=== PATIENT | female | born 1990 | race Caucasian/White ===

== ENCOUNTER 2016-12-13 15:51 | Emergency (ER) | payer OTHER, BC ==
[~2016-12-13] VITALS: Ht 157.5 cm; Wt 72.6 kg
[~2016-12-13 15:51] MED LIST: AMOX-358 PO; CYCL10TA9 PO; DCS100C PO; HYDR-3720 PO; Ibuprofen PO; NAPR500T PO; ONDA-42 PO; PNV1CAPS42 PO; PRD20T PO
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
[2016-12-13] MEDS ORDERED: CYCLOBENZAPRINE 10 MG (FLEXERIL) TAB PO STA (17:32)
[2016-12-13] MEDS ORDERED: ACETAMINOPHEN 325 MG TABLET/CAPLET (TYLENOL) PO STA (17:32)
[2016-12-13] MEDS ORDERED: CYCL10TA9 PO (17:37)
[2016-12-13 18:34] VITALS: BP 107/57
== END 2016-12-13 18:34 | disposition home or self-care (01) ==
LOC: ER 15:51
DX: S13.9XXA Sprain of joints and ligaments of unspecified parts of neck, initial encounter (principal); Z87.59 Personal history of other complications of pregnancy, childbirth and the puerperium; V43.52XA Car driver injured in collision with other type car in traffic accident, initial encounter
CPT/HCPCS: 70450; 72125; 73110; 99283

== ENCOUNTER 2018-03-02 15:45 | Emergency (ER) | payer BC, OTHER ==
[~2018-03-02] VITALS: Ht 154.9 cm; Wt 70.3 kg
[~2018-03-02 15:45] MED LIST changes: +NAPR-1071 PO; -NAPR500T PO
--- OUTSIDE RECORDS SUMMARY | 2018-03-02 15:51 | XMS REPORT ---
Author Author ARTHUR GRULLON Organization [employer] Address Unknown Phone Unavailable Care Team Providers Care Overcoiler Name Role Phone ARTHUR GRULLON CP Unavailable Allergies No Known Allergies Problems Problem Type Condition Code Onset Dates Condition Status Problem General counseling for prescription of oral contraceptives V25.01 Active Problem Unspecified vaginitis and vulvovaginitis 616.10 Active Problem Other headache syndrome G44.89 Active Problem Candidiasis of vulva and vagina 112.1 Active Problem Screening examination for pulmonary tuberculosis V74.1 Active Problem Dysuria 788.1 Active Medications No Known Medications Results No Known Results Summary Purpose [employer] Submission
--- OUTSIDE RECORDS SUMMARY | 2018-03-02 15:51 | XMS REPORT ---
Author Author ARTHUR GRULLON [facility] [employer] Address Unknown Phone Unavailable Care Team Providers Care Mountain Services Manager Name Role Phone ARTHUR GRULLON CP Unavailable Allergies, Adverse Reactions, Alerts Substance Reaction Event Type N.K.D.A. Info Not Available Non Drug Allergy Problems Problem Type Condition Code Onset Dates Condition Status Assessment Other headache syndrome G44.89 Active Problem General counseling for prescription of oral contraceptives V25.01 Active Problem Unspecified vaginitis and vulvovaginitis 616.10 Active Problem Other headache syndrome G44.89 Active Problem Candidiasis of vulva and vagina 112.1 Active Assessment Fatigue, unspecified type R53.83 Active Problem Screening examination for pulmonary tuberculosis V74.1 Active Problem Dysuria 788.1 Active Medications Medication Code System Code Instructions Start Date End Date Status Dosage Depo-Provera [facility] [address]-46 150 MG/ML Intramuscular 1 ml Procedures Procedure Coding System Code Date COMPREHEN METABOLIC PANEL CPT-4 75604 Feb 06, 2016 ASSAY THYROID STIM HORMONE CPT-4 56672 Feb 06, 2016 COMPLETE CBC W/AUTO DIFF WBC CPT-4 38973 Feb 06, 2016 VENIPUNCT, ROUTINE* CPT-4 74882 Feb 06, 2016 C-REACTIVE PROTEIN CPT-4 64623 Feb 06, 2016 Office Visit, Est Pt., Level 3 CPT-4 65702 Feb 06, 2016 Vital Signs Date/Time: Feb 06, 2016 Cardiac Monitoring Heart Rate 72 bpm Weight 156.6 lbs Height 60 in BMI 30.58 Index Blood Pressure Diastolic 72 mmHg Blood Pressure Systolic 118 mmHg Results Name Result Date Reference Range Unit Abnormality Flag TSH ----TSH 1.760 21247386 0.450-4.500 uIU/mL CBC ----Basos 0 93125293 % ----MCV 87 36403080 79-97 fL ----Hematocrit 46.2 53146750 34.0-46.6 % ----Eos 1 45228659 % ----MCHC 32.7 53931335 31.5-35.7 g/dL ----Monocytes 6 92842709 % ----MCH 28.5 30494677 26.6-33.0 pg ----Lymphs 20 95600701 % ----Eos (Absolute) 0.1 02374584 0.0-0.4 x10E3/uL ----WBC 7.6 72374140 3.4-10.8 x10E3/uL ----Monocytes(Absolute) 0.5 52668538 0.1-0.9 x10E3/uL ----Lymphs (Absolute) 1.5 46748683 0.7-3.1 x10E3/uL ----Hemoglobin 15.1 07283426 11.1-15.9 g/dL ----Neutrophils (Absolute) 5.5 09436168 1.4-7.0 x10E3/uL ----RBC 5.30 48376870 3.77-5.28 x10E6/uL H ----Immature Grans (Abs) 0.0 60487518 0.0-0.1 x10E3/uL ----Immature Granulocytes 0 04189370 % ----Neutrophils 73 68842031 % ----Baso (Absolute) 0.0 03203436 0.0-0.2 x10E3/uL ----RDW 14.4 04486421 12.3-15.4 % ----Platelets 353 72175965 150-379 x10E3/uL ROUTINE VENIPUNCTURE CT Scan : Face CT Scan : Head/Brain w/o & w/ Contrast CRP ----C-Reactive Protein, Quant 8.8 [id number] 0.0-4.9 mg/L H CMP ----Creatinine, Serum 0.80 26279430 0.57-1.00 mg/dL ----BUN 16 24597387 6-20 mg/dL ----eGFR If Africn Am 120 34201843 >59 mL/min/1.73 ----eGFR If NonAfricn Am 104 63470119 >59 mL/min/1.73 ----Sodium, Serum 141 43887231 136-144 mmol/L ----BUN/Creatinine Ratio 20 08327841 8-20 ----Chloride, Serum 100 94845527 97-106 mmol/L ----Potassium, Serum 4.5 94229507 3.5-5.2 mmol/L ----Carbon Dioxide, Total 24 75439415 18-29 mmol/L ----Protein, Total, Serum 7.6 74748432 6.0-8.5 g/dL ----Calcium, Serum 9.9 79246297 8.7-10.2 mg/dL ----Globulin, Total 3.3 43483059 1.5-4.5 g/dL ----Albumin, Serum 4.3 95145926 3.5-5.5 g/dL ----Bilirubin, Total 0.6 13130762 0.0-1.2 mg/dL ----Glucose, Serum 65 20160206 65-99 mg/dL ----A/G Ratio 1.3 20160206 1.1-2.5 ----ALT (SGPT) 19 20160206 0-32 IU/L ----Alkaline Phosphatase, S 105 96171845 39-117 IU/L ----AST (SGOT) 19 20160206 0-40 IU/L Summary Purpose [employer]ClinicalWorks Submission
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
--- OUTSIDE RECORDS SUMMARY | 2018-03-02 15:51 | XMS REPORT ---
Author Author EMY CONNELL Organization [facility] Address [address] [place] [address] Care Team Providers Care Search Marketing Coordinator Name Role Phone EMY CONNELL Unavailable PROBLEMS No Known Problems ALLERGIES No Information ENCOUNTERS Encounter Location Date Diagnosis [facility] [id number] [place] [address] Dec, Right wrist pain M25.531 [facility] [id number] [place] [address]- [address]15 Nov, Right wrist pain M25.531 [facility] [id number] [place] [address]- [address]99 Jan, [facility] [id number] [place] [address] 52321- [address] Jan, Fatigue, unspecified type R53.83 and Other headache syndrome G44.89 [facility] [id number] [place] [address] Jul, Increased urinary frequency R35.0 ; Acute urinary tract infection N39.0 and Vaginal candidiasis B37.3 [facility] [id number] [place] [address] 09022- 6355 Jan, Yeast infection of the vagina B37.3 [facility] [id number] [place] [address] 31876- 2140 Jul, [facility] [id number] [place] [address] 07759- 7051 Jul, [facility] [id number] [place] [address] 23888- 4898 Mar, [facility] [address] [place] [address]- [address]89 Mar, [facility] [address] [id number] [place] [address] 17[address] Apr, [facility] [place] [facility] [address] [id number] [place] [address]- [address] Apr, [facility] [address] [id number] [place] [address]- 2718 Mar, [facility] [place] [facility] [address] [id number] [place] [address]- 0413 Mar, [facility] [address] [id number] [place] [address]- [address]6 Mar, [facility] [address] [id number] [place] [address]- 2917 Mar, [facility] [address] [id number] [place] [address]- 2607 Mar, [facility] [address] [id number] [place] [address]- 3219 Oct, [facility] [place] [facility] [address] [id number] [place] [address]- 3881 Oct, [facility] [address] [id number] [place] [address]- 0[address] 15 Oct, 2012 [facility] [place] [facility] [address] [id number] [place] [address]- 9722 14 Oct, 2012 [facility] [place] [facility] [address] [id number] [place] [address]- 9604 Oct, [facility] [place] [facility] [address] [id number] [place] [address]- 8937 Jun, [facility] [place] [facility] [address] [id number] [place] [address]- 8200 May, [facility] [place] [facility] [address] [id number] [place] [address]- 6557 Feb, [facility] [address] [facility] [id number] [place] [address]- 6[address] Feb, [facility] [address] [facility] [id number] [place] [address] 1754 Jan, IMMUNIZATIONS No Known Immunizations SOCIAL HISTORY Never Assessed REASON FOR VISIT Referral PLAN OF CARE VITAL SIGNS MEDICATIONS Unknown Medications RESULTS No Results PROCEDURES No Known procedures INSTRUCTIONS MEDICATIONS ADMINISTERED No Known Medications MEDICAL (GENERAL) HISTORY Type Description Date Surgical History Hospitalization History surgery
--- OUTSIDE RECORDS SUMMARY | 2018-03-02 15:51 | XMS REPORT ---
Author BRIAN Serrano [facility] eClinicalWorks Address Unknown Phone Unavailable Care Team Providers Care Sign Writer Letterer Or Painter Name Role Phone BRIAN MARK CP Unavailable Allergies, Adverse Reactions, Alerts Substance Reaction Event Type N.K.D.A. Info Not Available Non Drug Allergy Problems Problem Type Condition Code Onset Dates Condition Status Problem Unspecified vaginitis and vulvovaginitis 616.10 Active Problem Screening examination for pulmonary tuberculosis V74.1 Active Problem General counseling for prescription of oral contraceptives V25.01 Active Assessment Yeast infection of the vagina B37.3 Active Problem Dysuria 788.1 Active Problem Candidiasis of vulva and vagina 112.1 Active Medications Medication Code System Code Instructions Start Date End Date Status Dosage Depo-Provera [facility] [address]-53 150 MG/ML Intramuscular [address] [facility] [address]-06 100 MG Orally Once a day Jan 14, 2015 Jan 21, 2015 1 tablet Procedures Procedure Coding System Code Date Office Visit, Est Pt., Level 3 CPT-4 77015 Jan 14, 2015 Vital Signs Date/Time: Jan 14, 2015 Temperature 98.8 F Weight 150.3 lbs Height 60 in BMI 29.35 Index Blood Pressure Diastolic 80 mmHg Blood Pressure Systolic 116 mmHg Cardiac Monitoring Heart Rate 72 bpm Results No Known Results Summary Purpose eClinicalWorks Submission
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
[2018-03-02] MEDS ORDERED: ACETAMINOPHEN 325 MG TABLET PO STA (16:09)
--- NOTE | 2018-03-02 16:09 | ED Lower Extremity ---
General Chief Complaint: Lower Extremity Stated Complaint: INJURED RT FOOT Nursing Triage Note: PATIENT TO ER VIA WHEELCHAIR WITH FAMILY MEMBERS COMPLAINING OF RIGHT ANKLE AND FOOT PAIN. PATIENT STATES SHE WAS HOLDING A CLOTHES BASKET, TRIPPED AND FELL OVER THE CLOTHES BASKET. PATIENT IS UNABLE TO BEAR WEIGHT ON THE RIGHT LEG DUE TO THE PAIN. Nursing Sepsis Screen: No Definite Risk History of Present Illness Date Seen by Provider: Mar 02, 2018 Time Seen by Provider: 15:55 Initial Comments 27-year-old female presents for left foot and ankle pain. She states she was carrying a closed basket when she tripped and fell injuring her right lower extremity. She denies any other injuries at the time of the fall. She's had no previous surgeries on her right lower extremity. Onset: just prior to arrival Pain/Injury Location: right foot, right ankle Method of Injury: fell Modifying Factors: Improves With Rest Allergies and Home Medications Allergies Coded Allergies: No Known Drug Allergies (Unverified , 06/20/13) Home Medications Amoxicillin/Potassium Clav 1 Each Tablet, 1 EACH PO BID Prescribed by: LINA BATISTA on 12/26/15 0910 Cyclobenzaprine HCl 10 Mg Tablet, 10 MG PO Q8H PRN for SPASMS Prescribed by: TOLU LIU on 10/21/15 1302 Cyclobenzaprine HCl 10 Mg Tablet, 10 MG PO Q8H PRN for SPASMS Prescribed by: IRASEMA LESTER on 12/13/16 1737 Naproxen 500 Mg Tablet, 500 MG PO BID Prescribed by: TOLU LIU on 10/21/15 1302 Prednisone 20 Mg Tab, 40 MG PO DAILY Prescribed by: TOLU LIU on 10/21/15 1302 Patient Home Medication List Home Medication List Reviewed: Yes Review of Systems Constitutional: no symptoms reported, see HPI Musculoskeletal: see HPI, joint pain (right ankle and foot) All Other Systems Reviewed Negative Unless Noted: Yes Past Vrocmra-Uuljqm-Kwnkcc Hx Past Med/Social Hx: Reviewed Nursing Past Med/Soc Hx Patient Social History Alcohol Use: Denies Use Recreational Drug Use: No Smoking Status: Never a Smoker 2nd Hand Smoke Exposure: No Recent Foreign Travel: No Contact w/Someone Who Travel: No Recent Infectious Disease Expo: No Recent Hopitalizations: No Immunizations Up To Date Tetanus Booster (TDap): Unknown PED Vaccines UTD: Yes Past Medical History Surgeries: Yes ( X 1, LEFT WRIST GANGLION CYST) Section, Orthopedic Respiratory: No Cardiac: No Neurological: No Reproductive Disorders: No Female Reproductive Disorders: Denies Genitourinary: No Gastrointestinal: No Musculoskeletal: No Endocrine: No HEENT: No Cancer: No Psychosocial: No Integumentary: No Blood Disorders: No Adverse Reaction/Blood Tranf: No Family Medical History Diabetes mellitus Hypertension Physical Exam Vital Signs Vital Signs - First Documented 03/02/18 15:47 Temp 99.4 Pulse 106 Resp 18 B/P (MAP) 114/80 (91) Pulse Ox 97 O2 Delivery Room Air Capillary Refill : Less Than 3 Seconds Height, Weight, BMI Height: 5'1.00" Weight: 155lbs. oz. 70.913249aa; 30.23 BMI Method:Stated General Appearance: WD/WN, no apparent distress Cardiovascular: normal peripheral pulses, regular rate, rhythm, other (pedal pulses 2+ and symmetric, brisk capillary refill.) Respiratory: chest non-tender, lungs clear, normal breath sounds Ankles: right ankle limited range of motion (secondary to pain), right ankle pain, right ankle soft tissue tenderness, right ankle swelling Feet: right foot limited range of motion, right foot pain, right foot soft tissue tenderness Neurologic/Tendon: normal sensation, normal motor functions, normal tendon functions Neurologic/Psychiatric: no motor/sensory deficits, alert, normal mood/affect, oriented x 3 Skin: normal color, warm/dry Progress/Results/Core Measures Results/Orders My Orders Orders - IRASEMA LESTER Foot, Right, 3 View (03/02/18 15:55) Ankle, Right, 3 Views (03/02/18 15:55) Acetaminophen Tablet/Caplet (Tylenol T (03/02/18 16:09) Vital Signs/I&O 03/02/18 03/02/18 15:47 16:55 Temp 99.4 99.4 Pulse 106 106 Resp 18 18 B/P (MAP) 114/80 (91) 114/80 (91) Pulse Ox 97 97 O2 Delivery Room Air Blood Pressure Mean: 91 Progress Progress Note : Time: 15:55 Progress Note Patient seen and evaluated. Will obtain x-rays of the right ankle and foot. Tylenol 650 mg orally for pain and ice pack. 1635 x-rays show no acute bony abnormalities, no dislocations or fractures appreciated, 4 inch Esteban wrap applied to the right ankle and foot. Patient to ambulate with crutches as needed. Discharge instructions and return precautions reviewed with her in detail. All questions answered. Diagnostic Imaging Diagonstic Imaging: Xray Plain Films/CT/US/NM/MRI: ankle Comments NAME: DEON POTTS [facility] REC#: [id number] PT STATUS: REG ER : 1990 PHYSICIAN: IRASEMA LESTER ADMIT DATE: 03/02/18/ER Signed Date of Exam: 03/02/18 ANKLE, RIGHT, 3 VIEWS EXAMINATION: Right ankle, 3 views. COMPARISON: None. HISTORY: 27-year-old female, right ankle and foot pain. Injury. FINDINGS: There is no ankle joint effusion. There is no identified acute fracture. Alignment of the ankle mortise is unremarkable. There is no radiopaque foreign body. There is no prominent focal soft tissue swelling. IMPRESSION: Unremarkable right ankle radiographs. Dictated by: Dictated on workstation # [id number] Dict: 03/02/181625 Trans: 03/02/181626 Interpreted by: LIBIA VILA MD Electronically signed by: LIBIA VILA MD 03/02/181626 Reviewed: Reviewed by Me Diagonstic Imaging: Xray Plain Films/CT/US/NM/MRI: other Comments NAME: DEON POTTS [facility] REC#: [id number] PT STATUS: REG ER : 1990 PHYSICIAN: IRASEMA LESTER ADMIT DATE: 03/02/18/ER Draft Date of Exam:03/02/18 FOOT, RIGHT, 3 VIEW INDICATION: Right foot and ankle pain. Three views of the right foot shows no fracture, dislocation or other abnormality. IMPRESSION: Normal right foot. Dictated on workstation # [id number] Dict: 03/02/18 162 Trans: 03/02/18 1635 [facility] [id number] Interpreted by: VALARIE STAUFFER MD Electronically signed by: Reviewed: Reviewed by Me (but) Departure Impression Primary Impression: Fall Qualified Codes: W19.XXXA - Unspecified fall, initial encounter Additional Impression: Right ankle sprain Qualified Codes: S93.491A - Sprain of other ligament of right ankle, initial encounter Disposition: 01 HOME, SELF-CARE Condition: Improved Departure-Patient Inst. Decision time for Depature: 16:35 Referrals: ARTURO AARON MD (PCP/Family) Primary Care Physician Patient Instructions: Ankle Sprain (DC) Add. Discharge Instructions: Ice and elevate right ankle and foot. You may alternate between Tylenol 650 mg and ibuprofen 600 mg every 4 hours for pain and swelling. Follow-up with your primary care provider or schedule with orthopedics in the next 2-3 days if symptoms are not improving or worsen. Use Esteban wrap to assist with swelling. May remove this for bathing. You may use crutches as needed, weightbearing as tolerated on the right lower extremity. Return to emergency department for new, acute health care problems. All discharge instructions reviewed with patient and/or family. Voiced understanding. Work/School Note: Work Release Form Date Seen in the Emergency Department: Mar 02, 2018 Return to Work: Mar 05, 2018 Restrictions: Need Release from Doctor Other Restrictions Listed Below: Crutches, WBAT Right leg. Restrictions: Full clearance by primary care provider. Copy Copies To 1: ARTURO AARON MD, AMY ARNP Mar 02, 2018 16:09
--- NOTE | 2018-03-02 16:30 | Diagnostic Imaging Report ---
EXAMINATION: Right ankle, 3 views. COMPARISON: None. HISTORY: 27-year-old female, right ankle and foot pain. Injury. FINDINGS: There is no ankle joint effusion. There is no identified acute fracture. Alignment of the ankle mortise is unremarkable. There is no radiopaque foreign body. There is no prominent focal soft tissue swelling. IMPRESSION: Unremarkable right ankle radiographs. Dictated by: Dictated on workstation # [id number]
--- NOTE | 2018-03-02 16:36 | Diagnostic Imaging Report ---
INDICATION: Right foot and ankle pain. Three views of the right foot shows no fracture, dislocation or other abnormality. IMPRESSION: Normal right foot. Dictated by: Dictated on workstation # [id number]
[2018-03-02 16:55] VITALS: BP 114/80
== END 2018-03-02 16:55 | disposition home or self-care (01) ==
LOC: EDUNIT# 15:45 → ER 15:47
DX: S93.491A Sprain of other ligament of right ankle, initial encounter (principal); Z79.52 Long term (current) use of systemic steroids; Z98.890 Other specified postprocedural states; W01.0XXA Fall on same level from slipping, tripping and stumbling without subsequent striking against object, initial encounter
CPT/HCPCS: 73610; 73630

== ENCOUNTER 2018-07-25 21:57 | Emergency (ER) | payer BC ==
[~2018-07-25] VITALS: Ht 154.9 cm; Wt 72.6 kg
--- OUTSIDE RECORDS SUMMARY | 2018-07-25 22:03 | XMS REPORT ---
Author Author Migration, Doctor Organization [facility] Address Unknown Phone Unavailable Care Team Providers Care Data Entry Technician Name Role Phone Migration, Doctor Unavailable Unavailable PROBLEMS No Known Problems ALLERGIES No Information ENCOUNTERS Encounter Location Date Diagnosis [facility] [id number] [place] [address] Apr, Weight gain R63.5 [place] [place] [id number] [place] [address] Dec, Right wrist pain M25.531 [place] [id number] [place] [address] Nov, Right wrist pain M25.531 [place] [id number] [place] [address] Jan, [facility] [id number] [place] [address] Jan, Fatigue, unspecified type R53.83 and Other headache syndrome G44.89 [facility] [id number] [place] [address] Jul, Increased urinary frequency R35.0 ; Acute urinary tract infection N39.0 and Vaginal candidiasis B37.3 [facility] [id number] [place] [address] Jan, Yeast infection of the vagina B37.3 [facility] [id number] [place] [address] Jul, [facility] [id number] [place] [address] Jul, [facility] [id number] [place] [address] Mar, [facility] [address] [id number] [place] [address] Mar, [facility] [address] [id number] [place] Apr, [facility] [address] [id number] [place] [address] Apr, [facility] [address] [id number] [place] [address] Mar, [facility] [address] [id number] [place] [address] Mar, [facility] [address] [id number] [place] [address] Mar, [facility] [address] [id number] [place] [address] Mar, [facility] [address] [id number] [place] [address] Mar, [facility] [address] [id number] [place] [address] Oct, [facility] [address] [id number] [place] [address] Oct, [facility] [address] [id number] [place] [address] 15 Oct, 2012 [facility] [address] [id number] [place] [address] 14 Oct, 2012 [facility] [place] [facility] [address] [id number] [place] [address] Oct, [facility] [place] [facility] [address] [id number] [place] [address] Jun, [facility] [place] [facility] [address] [id number] [place] [address] May, [facility] [place] [facility] [address] [id number] [place] [address] Feb, [facility] [address] [facility] [id number] [place] [address] Feb, [facility] [address] [facility] [id number], [place] [address] Jan, IMMUNIZATIONS No Known Immunizations SOCIAL HISTORY Never Assessed REASON FOR VISIT EMR-[facility] PLAN OF CARE VITAL SIGNS MEDICATIONS Medication Instructions Dosage Frequency Start Date End Date Duration Status Diflucan 150 mg take 1 tablet by Oral route once 1 time per day repeat in 3 days Mar, Active Ortho-Cyclen (28) 0.25-35 mg-mcg take 1 tablet by oral route once daily Mar, Active RESULTS No Results PROCEDURES No Known procedures INSTRUCTIONS MEDICATIONS ADMINISTERED No Known Medications MEDICAL (GENERAL) HISTORY Type Description Date Surgical History Surgical History RT wrist surgery 01/2018 Hospitalization History surgery
[2018-07-25 22:22] LABS: BILIRUBIN,URINE NEGATIVE (NEGATIVE); CLARITY,URINE SLIGHTLY CLOUDY; COLOR,URINE YELLOW; GLUCOSE, URINE (UA) NEGATIVE (NEGATIVE); KETONES,URINE NEGATIVE (NEGATIVE); LEUKOCYTE ESTERASE ,URINE NEGATIVE (NEGATIVE); NITRITE,URINE NEGATIVE (NEGATIVE); PH,URINE 6 (5-9); PROTEIN,URINE NEGATIVE (NEGATIVE); UROBILINOGEN,URINE NORMAL (NORMAL)
[2018-07-25 22:28] LABS: BACTERIA,URINE TRACE /HPF
--- NOTE | 2018-07-25 22:29 | ED Abdominal Pain ---
General Chief Complaint: Abdominal/GI Problems Stated Complaint: LOWER ABD PAIN Nursing Triage Note: Pt reorts lower abdominal pain for two days. Pt reports normal BM a couple of hours W[employer]W [employer]. Pt reports one incidence of painful urination this morning. Pt reports LMP was four weeks ago. Sepsis Screen: No Definite Risk Source of Information: Patient Exam Limitations: No Limitations (ARNEL GUNN) History of Present Illness Date Seen by Provider: Jul 25, 2018 Time Seen by Provider: 22:27 Initial Comments 27-year-old female who presents to the emergency room with complaints of lower suprapubic abdominal pain that radiates to her left side for the past 2 days. She reports that she did have one episode of painful urination today. She denies nausea, vomiting, diarrhea, constipation, or fevers. Timing/Duration: 2-3 Days Severity/Quality: Aching Location: LLQ, Suprapubic Associated Symptoms: Denies Symptoms (ARNEL GUNN) Allergies and Home Medications Allergies Coded Allergies: No Known Drug Allergies (Unverified , 06/20/13) Home Medications Amoxicillin/Potassium Clav 1 Each Tablet, 1 EACH PO BID Prescribed by: LINA BATISTA on 12/26/15 0910 Cyclobenzaprine HCl 10 Mg Tablet, 10 MG PO Q8H PRN for SPASMS Prescribed by: TOLU LIU on 10/21/15 1302 Cyclobenzaprine HCl 10 Mg Tablet, 10 MG PO Q8H PRN for SPASMS Prescribed by: IRASEMA LESTER on 12/13/16 1737 Naproxen 500 Mg Tablet, 500 MG PO BID Prescribed by: TOLU LIU on 10/21/15 1302 Prednisone 20 Mg Tab, 40 MG PO DAILY Prescribed by: TOLU LIU on 10/21/15 1302 Patient Home Medication List Home Medication List Reviewed: Yes (ARNEL GUNN) Review of Systems Review of Systems Constitutional: see HPI; No chills, No fever Gastrointestinal: See HPI, Abdominal Pain; Denies Constipated, Denies Diarrhea , Denies Nausea, Denies Vomiting (ARNEL GUNN) All Other Systems Reviewed Negative Unless Noted: Yes (ARNEL GUNN) Past Fthzbsd-Nbrowq-Phnslr Hx Past Med/Social Hx: Reviewed Nursing Past Med/Soc Hx (ARNEL GUNN) Patient Social History Alcohol Use: Denies Use Recreational Drug Use: No 2nd Hand Smoke Exposure: No Recent Foreign Travel: No Contact w/Someone Who Travel: No Recent Infectious Disease Expo: No Recent Hopitalizations: No Physical Abuse: No Sexual Abuse: No (ARNEL GUNN) Immunizations Up To Date Tetanus Booster (TDap): Unknown PED Vaccines UTD: Yes (ARNEL GUNN) Past Medical History Surgeries: Yes ( X 1, LEFT WRIST GANGLION CYST) Section, Orthopedic Respiratory: No Cardiac: No Neurological: No Last Menstrual Period: Jun 24, 2018 Reproductive Disorders: No Female Reproductive Disorders: Denies Genitourinary: No Gastrointestinal: No Musculoskeletal: No Endocrine: No HEENT: No Cancer: No Psychosocial: No Integumentary: No Blood Disorders: No Adverse Reaction/Blood Tranf: No (ARNEL GUNN) Family Medical History Reviewed Nursing Family Hx (ARNEL GUNN) Diabetes mellitus Hypertension Physical Exam Vital Signs Vital Signs - First Documented 07/25/18 22:06 Temp 97.6 Pulse 86 Resp 18 B/P (MAP) 116/85 (95) Pulse Ox 99 O2 Delivery Room Air (LORI MARCELION MD) Vital Signs Capillary Refill : Less Than 3 Seconds (ARNEL GUNN) Height/Weight/BMI Height: 5'1.00" Weight: 160lbs. oz. [id number]; 30.23 BMI Method:Stated General Appearance: WD/WN, no apparent distress Respiratory: chest non-tender, lungs clear, normal breath sounds, no respiratory distress, no accessory muscle use Cardiovascular: normal peripheral pulses, regular rate, rhythm, no edema, no gallop, no JVD, no murmur Gastrointestinal: normal bowel sounds, soft, no organomegaly, no pulsatile mass , tenderness (left lower quadrant) Extremities: normal capillary refill Neurologic/Psychiatric: alert, normal mood/affect, oriented x 3 Skin: normal color, warm/dry (ARNEL GUNN) Progress/Results/Core Measures Results/Orders Lab Results Laboratory Tests Test 07/25/18 22:10 07/25/18 22:25 Range/Units Urine Color YELLOW Urine Clarity SLIGHTLY CLOUDY Urine pH 6 5-9 Urine Specific [place] 1.025 H 1.016-1.022 Urine Protein NEGATIVE NEGATIVE Urine Glucose (UA) NEGATIVE NEGATIVE Urine Ketones NEGATIVE NEGATIVE Urine Nitrite NEGATIVE NEGATIVE Urine Bilirubin NEGATIVE NEGATIVE Urine Urobilinogen NORMAL NORMAL MG/DL Urine Leukocyte Esterase NEGATIVE NEGATIVE Urine RBC (Auto) NEGATIVE NEGATIVE Urine RBC NONE /HPF Urine WBC NONE /HPF Urine Squamous Epithelial Cells 5-10 /HPF Urine Crystals NONE /LPF Urine Bacteria TRACE /HPF Urine Casts NONE /LPF Urine Mucus NEGATIVE /LPF Urine Culture Indicated NO White Blood Count 10.7 4.3-11.0 10^3/uL Red Blood Count 5.20 4.35-5.85 10^6/uL Hemoglobin 15.3 11.5-16.0 G/DL Hematocrit 46 35-52 % Mean Corpuscular Volume 88 80-99 FL Mean Corpuscular Hemoglobin 29 25-34 PG Mean Corpuscular Hemoglobin Concent 34 32-36 G/DL Red Cell Distribution Width 13.9 10.0-14.5 % Platelet Count 328 130-400 10^3/uL Mean Platelet Volume 9.9 7.4-10.4 FL Neutrophils (%) (Auto) 64 42-75 % Lymphocytes (%) (Auto) 26 12-44 % Monocytes (%) (Auto) 8 0-12 % Eosinophils (%) (Auto) 2 0-10 % Basophils (%) (Auto) 0 0-10 % Neutrophils # (Auto) 6.9 1.8-7.8 X 10^3 Lymphocytes # (Auto) 2.8 1.0-4.0 X 10^3 Monocytes # (Auto) 0.8 0.0-1.0 X 10^3 Eosinophils # (Auto) 0.2 0.0-0.3 10^3/uL Basophils # (Auto) 0.0 0.0-0.1 10^3/uL Sodium Level 139 135-145 MMOL/L Potassium Level 4.0 3.6-5.0 MMOL/L Chloride Level 104 98-107 MMOL/L Carbon Dioxide Level 24 21-32 MMOL/L Anion Gap 11 5-14 MMOL/L Blood Urea Nitrogen 16 7-18 MG/DL Creatinine 0.81 0.60-1.30 MG/DL Estimat Glomerular Filtration Rate > 60 BUN/Creatinine Ratio 20 Glucose Level 94 70-105 MG/DL Calcium Level 10.2 H 8.5-10.1 MG/DL Corrected Calcium 9.8 8.5-10.1 MG/DL Total Bilirubin 0.7 0.1-1.0 MG/DL Aspartate Amino Transf (AST/SGOT) 19 5-34 U/L Alanine Aminotransferase (ALT/SGPT) 29 0-55 U/L Alkaline Phosphatase 111 40-136 U/L Total Protein 8.5 H 6.4-8.2 GM/DL Albumin 4.5 3.2-4.5 GM/DL Amylase Level 58 25-125 U/L Lipase 10 8-78 U/L (LORI MARCELINO MD) My Orders Orders - LORI MARCELINO MD Iohexol Injection (Omnipaque 350 Mg/Ml 1 (07/25/18 23:15) Received Contrast (Hold Metformin- Contr (07/25/18 23:15) Ns Iv 1000 Ml (Sodium Chloride 0.9%) (07/25/18 23:31) Ns Iv 1000 Ml (Sodium Chloride 0.9%) (07/25/18 23:30) Ketorolac Injection (Toradol Injection) (07/25/18 23:44) (LORI MARCELINO MD) Medications Given in ED Current Medications Medications Dose Ordered Sig/Mumtaz Route Start Time Stop Time Status Last Admin Dose Admin Iohexol 100 ml ONCE ONCE IV 07/25/18 23:15 07/25/18 23:17 DC 07/25/18 23:17 100 ML (LORI MARCELINO MD) Vital Signs/I&O 07/25/18 22:06 Temp 97.6 Pulse 86 Resp 18 B/P (MAP) 116/85 (95) Pulse Ox 99 O2 Delivery Room Air (LORI MARCELINO MD) Blood Pressure Mean: 95 Progress Progress Note : Progress Note To 300: Assumed care of the patient for transportation, VINYL DIPPER pending CT and labs. Patient is okay. 2345: CT complete and results noted. She does have mild epiploic appendagitis. Toradol 30 mg IV for pain and normal saline 1 L bolus ordered after IV contrast for CT. These are complete she will go home and patient is okay with that. 0010: Pain resolved. Discharged home with return precautions. Patient verbalize understanding instructions and agreement with plan. (LORI MARCELINO MD) Diagnostic Imaging Diagonstic Imaging: CT Plain Films/CT/US/NM/MRI: abdomen, pelvis Comments Mild epiploic appendagitis is present at the sigmoid colon Reviewed: Reviewed [place] Study (LORI MARCELINO MD) Departure Impression Primary Impression: Epiploic appendagitis Additional Impression: Abdominal pain, left lower quadrant Disposition: 01 HOME, SELF-CARE Condition: Improved Departure-Patient Inst. Decision time for Depature: 23:51 (LORI MARCELINO MD) Referrals: ARTURO AARON MD (PCP/Family) Primary Care Physician Patient Instructions: Acute Abdomen (Belly Pain), Adult (DC) Add. Discharge Instructions: All discharge instructions reviewed with patient and/or family. Voiced understanding. You may take ibuprofen 600 mg every 8 hours as needed for pain. You may take Tylenol/acetaminophen 1000 mg every 8 hours as needed for pain. Follow-up with your doctor next week for recheck and further evaluation. Return for worse pain , fever, vomiting, bloody stool, weakness, breathing problems or other concerns as needed. Copy Copies To 1: ARTURO AARON MD, TRAVIS Jul 25, 2018 22:29 LORI MARCELINO MD Jul 25, 2018 23:51
[2018-07-25 22:45] LABS: BASOPHILS % (AUTO) 0 % (0-10); EOSINOPHILS # (AUTO) 0.2 10^3/uL (0.0-0.3); EOSINOPHILS % (AUTO) 2 % (0-10); HEMATOCRIT 46 % (35-52); HEMOGLOBIN 15.3 G/DL (11.5-16.0); LYMPHOCYTES # (AUTO) 2.8 X 10^3 (1.0-4.0); LYMPHOCYTES % (AUTO) 26 % (12-44); MEAN CORPUSCULAR HEMOGLOBIN 29 PG (25-34); MEAN CORPUSCULAR HGB CONC 34 G/DL (32-36); MEAN CORPUSCULAR VOLUME 88 FL (80-99); MEAN PLATELET VOLUME 9.9 FL (7.4-10.4); MONOCYTES # (AUTO) 0.8 X 10^3 (0.0-1.0); MONOCYTES % (AUTO) 8 % (0-12); NEUTROPHILS # (AUTO) 6.9 X 10^3 (1.8-7.8); NEUTROPHILS % (AUTO) 64 % (42-75); PLATELET COUNT 328 10^3/uL (130-400); RED CELL DISTRIBUTION WIDTH 13.9 % (10.0-14.5); WHITE BLOOD COUNT 10.7 10^3/uL (4.3-11.0)
--- NOTE | 2018-07-25 22:50 | NUR ---
report given to BRYAN De Jesus
[2018-07-25 23:10] LABS: ALANINE AMINOTRANSFERASE 29 U/L (0-55); ALBUMIN 4.5 GM/DL (3.2-4.5); ALKALINE PHOSPHATASE 111 U/L (40-136); AMYLASE 58 U/L (25-125); BILIRUBIN,TOTAL 0.7 MG/DL (0.1-1.0); BUN/CREATININE RATIO 20; CALCIUM 10.2 MG/DL (8.5-10.1); CARBON DIOXIDE 24 MMOL/L (21-32); CHLORIDE 104 MMOL/L (98-107); CREATININE SERUM 0.81 MG/DL (0.60-1.30); GFR ESTIMATED > 60; GLUCOSE 94 MG/DL (70-105); LIPASE 10 U/L (8-78); SODIUM 139 MMOL/L (135-145); TOTAL PROTEIN 8.5 GM/DL (6.4-8.2)
[2018-07-25] MEDS ORDERED: IOHEXOL 350 MG/ML 100 ML (OMNIPAQUE 350) VIAL IV ONE (23:15)
[2018-07-25] MEDS ORDERED: HOLD METFORMIN - RECEIVED CONTRAST 20 ML VIAL IV SCH (23:15)
[2018-07-25] MEDS ORDERED: NS IV 1000 ML 1,000 ML ONE (23:30)
[2018-07-25] MEDS ORDERED: NS IV 1000 ML 1,000 ML IV STA (23:31)
[2018-07-25] MEDS ORDERED: KETOROLAC 30 MG/ML VIAL IVP STA (23:44)
[2018-07-26 00:17] VITALS: BP 102/66
--- NOTE | 2018-07-26 07:56 | Diagnostic Imaging Report ---
TECHNIQUE: Multiple contiguous axial images were obtained through the abdomen and pelvis after administration of intravenous contrast. Auto Exposure Controls were utilized during the CT exam to meet ALARA standards for radiation dose reduction. INDICATION: Left lower quadrant pain 2 days. Prior 2013. EXAMINATION: CT abdomen and pelvis with contrast, 07/25/2018. COMPARISONS: None. FINDINGS: There is mild focal fat stranding surrounding the sigmoid colon. No diverticular disease is seen in the region. The area of inflammatory change is nonspecific but could be due to a mild epiploic appendagitis given the lack of diverticular disease in the region. No free air is seen. No significant free fluid. Within the remaining abdomen and pelvis, fatty infiltration seen throughout the liver. The spleen is unremarkable. Gallbladder normal. The adrenal glands and pancreas unremarkable. No acute process in the kidneys. Tiny cystic changes in the ovaries, likely physiologic. The appendix is seen and is unremarkable without surrounding inflammatory change. There is no acute osseous abnormality. The visualized lung bases unremarkable. IMPRESSION: 1. Inflammation noted in the fatty area adjacent to the sigmoid colon, likely due to epiploic appendagitis as noted above. The left ovary contains a few small cystic areas and lies immediately adjacent to the region. The cystic changes are likely physiologic but if there is persistent pelvic pain, pelvic sonography may provide further characterization as clinically indicated. The remaining abdomen and pelvis as above. Pertinent findings agree with the preliminary report. Dictated by: Dictated on workstation # [id number]
== END 2018-07-26 00:18 | disposition home or self-care (01) ==
LOC: EDUNIT# 21:57 → ER 21:59
DX: K65.9 Peritonitis, unspecified (principal); Z79.52 Long term (current) use of systemic steroids; Z98.890 Other specified postprocedural states
CPT/HCPCS: 36415; 74177; 80053; 81000; 82150; 83690; 84703; 85025

== ENCOUNTER → 2018-08-26 | Outpatient (CLI) | payer BC, OTHER ==
--- NOTE | 2018-08-26 13:53 | Diagnostic Imaging Report ---
PROCEDURE: US Non-ob pelvis comp/trans. TECHNIQUE: Multiple real time reyes scale sonographic images were obtained of the pelvis transabdominally and transvaginally. CORRELATION STUDY: None INDICATION: Amenorrhea FINDINGS: UTERUS: 7.2 x 5.6 x 3.9 cm. The uterus appears unremarkable. ENDOMETRIUM: 6 mm. Endometrial thickness within normal limits. There is small amount of fluid within the endometrial canal. Cervical nabothian cysts are present. Largest at 4 mm in size. RIGHT OVARY: Not visualized. LEFT OVARY: Not visualized. This could be owing to position or obscuration by bowel gas. No definitive abnormal adnexal mass. No significant free pelvic fluid. IMPRESSION: 1. Nonvisualization of the ovaries could be owing to position or obscuration by overlying bowel gas. No definitive abnormal finding at the pelvic ultrasound evaluation. Dictated by: Dictated on workstation # [id number]
== END ==
LOC: RAD 08:55
PROVIDERS: ATTEND Family Medicine
DX: N91.2 Amenorrhea, unspecified (principal)
CPT/HCPCS: 76830; 76856

== ENCOUNTER → 2019-08-10 | Outpatient (CLI) | payer BC, OTHER ==
--- NOTE | 2019-08-10 16:38 | Diagnostic Imaging Report ---
INDICATION: Check dates. EXAMINATION: OB sonogram less than 14 weeks dated 08/10/2019. FINDINGS: There is a single live intrauterine gestation currently measuring 7 weeks 4 days by crown-rump length with a heart rate of approximately 142 BPM. There is a yolk sac present. The uterus is overall 12.8 cm in greatest dimension. The right ovary is 3.3 cm in greatest dimension and contains a dominant cystic area which is 1.4 x 1.5 x 1.3 cm in size. It is predominantly anechoic centrally, likely a dominant cyst or corpus luteal cyst. The left ovary is 2.9 cm in greatest dimension and unremarkable. No free fluid is seen. IMPRESSION: 1. Single live intrauterine gestation currently measuring 7 weeks 4 days with an estimated date of delivery of 03/24/2020. Followup for full survey is recommended. 2. Other findings as above. Dictated by: Dictated on workstation # [id number]
== END ==
LOC: RAD 10:16
PROVIDERS: ATTEND Family Medicine
DX: Z36.89 Encounter for other specified antenatal screening (principal); Z3A.01 Less than 8 weeks gestation of pregnancy
CPT/HCPCS: 76801

== ENCOUNTER 2019-08-29 11:19 | Emergency (ER) | payer BC ==
[~2019-08-29] VITALS: Ht 154 cm; Wt 77.6 kg
--- NOTE | 2019-08-29 11:54 | ED GI ---
General Chief Complaint: Abdominal/GI Problems Stated Complaint: VOMITING BLOOD - 10 WKS PREG Nursing Triage Note: PT STATES IS 10WEEKS AND HAS VOMITED X3 AND HAS BEEN STRAINING, PT STATES RETCHING. STATES BRIGHT RED STREAKS OF BLOOD NOTED. PT STATES HAS MICKEYFRAN SCRIPT FROM DR AARON Sepsis Screen: No Definite Risk Source of Information: Patient Exam Limitations: No Limitations History of Present Illness Date Seen by Provider: August 29, 2019 Time Seen by Provider: 11:39 Initial Comments Here with report of vomiting over the last few days. She is approximately 10 weeks . She has prescription for ondansetron but states that it sometimes makes her sicker. The last 2 days she's noted some blood streaks in the vomit. She is not currently vomiting and only a little bit nauseated. Does not have persistent bleeding. Follows with Dr. Aaron. Timing/Duration: 2-3 Days, Intermittent Severity/Quality: Other (nausea) Location: Epigastric Radiation: No Radiation Activities at Onset: None Modifying Factors: Worsens With Eating; Improves With Resting Associated Symptoms: No Back Pain, No Chest Pain, No Fever/Chills, No Fatigue, No Nausea/Vomiting, No Shortness of Air, No Swelling/Mass in Abdomen, No Syncope, No Weakness Allergies and Home Medications Allergies Coded Allergies: No Known Drug Allergies (Unverified , 06/20/13) Home Medications Amoxicillin/Potassium Clav 1 Each Tablet, 1 EACH PO BID Prescribed by: LINA BATISTA on 12/26/15 0910 Cyclobenzaprine HCl 10 Mg Tablet, 10 MG PO Q8H PRN for SPASMS Prescribed by: TOLU LIU on 10/21/15 1302 Cyclobenzaprine HCl 10 Mg Tablet, 10 MG PO Q8H PRN for SPASMS Prescribed by: IRASEMA LESTER on 12/13/16 1737 Naproxen 500 Mg Tablet, 500 MG PO BID Prescribed by: TOLU LIU on 10/21/15 1302 Prednisone 20 Mg Tab, 40 MG PO DAILY Prescribed by: TOLU LIU on 10/21/15 1302 Promethazine HCl 25 Mg Tablet, 25 MG PO Q8H PRN for NAUSEA/VOMITING Prescribed by: LORI MARCELINO on 08/29/19 1158 Patient Home Medication List Home Medication List Reviewed: Yes Review of Systems Review of Systems Constitutional: see HPI Respiratory: No Symptoms Reported Cardiovascular: No Symptoms Reported Gastrointestinal: See HPI Genitourinary: No Symptoms Reported Musculoskeletal: no symptoms reported Psychiatric/Neurological: No Symptoms Reported Past Igpyqyv-Hppsja-Adepap Hx Past Med/Social Hx: Reviewed Nursing Past Med/Soc Hx Patient Social History Alcohol Use: Denies Use Recreational Drug Use: No Smoking Status: Never a Smoker 2nd Hand Smoke Exposure: No Recent Foreign Travel: No Contact w/Someone Who Travel: No Recent Infectious Disease Expo: No Recent Hopitalizations: No Physical Abuse: No Sexual Abuse: No Immunizations Up To Date Tetanus Booster (TDap): Unknown PED Vaccines UTD: Yes Past Medical History Surgeries: Yes ( X 1, LEFT WRIST GANGLION CYST) Section, Orthopedic Respiratory: No Cardiac: No Neurological: No : Yes (10 WEEKS) Reproductive Disorders: No Female Reproductive Disorders: Denies Genitourinary: No Gastrointestinal: No Musculoskeletal: No Endocrine: No HEENT: No Cancer: No Psychosocial: No Integumentary: No Blood Disorders: No Adverse Reaction/Blood Tranf: No Family Medical History Reviewed Nursing Family Hx Diabetes mellitus Hypertension Physical Exam Vital Signs Vital Signs - First Documented 08/29/19 11:30 Temp 36.5 Pulse 78 Resp 18 B/P (MAP) 118/51 (73) Pulse Ox 99 Capillary Refill : Less Than 3 Seconds Height/Weight/BMI Height: 5'1.00" Weight: 160lbs. oz. 72.511362ef; 32.00 BMI Method:Stated General Appearance: WD/WN, no apparent distress Respiratory: lungs clear, normal breath sounds Cardiovascular: regular rate, rhythm, no murmur Gastrointestinal: normal bowel sounds, non tender, soft, no pulsatile mass Extremities: non-tender, normal inspection Back: normal inspection, no CVA tenderness, no vertebral tenderness Neurologic/Psychiatric: alert, normal mood/affect, oriented x 3 Skin: normal color, warm/dry Progress/Results/Core Measures Results/Orders Lab Results Laboratory Tests Test 08/29/19 11:40 08/29/19 11:51 Range/Units Urine Color YELLOW Urine Clarity CLOUDY Urine pH 6.0 5-9 Urine Specific [place] 1.025 H 1.016-1.022 Urine Protein NEGATIVE NEGATIVE Urine Glucose (UA) NEGATIVE NEGATIVE Urine Ketones 2+ H NEGATIVE Urine Nitrite NEGATIVE NEGATIVE Urine Bilirubin NEGATIVE NEGATIVE Urine Urobilinogen 0.2 < = 1.0 MG/DL Urine Leukocyte Esterase NEGATIVE NEGATIVE Urine RBC (Auto) NEGATIVE NEGATIVE Urine RBC RARE /HPF Urine WBC 2-5 /HPF Urine Squamous Epithelial Cells 10-25 H /HPF Urine Crystals NONE /LPF Urine Bacteria FEW H /HPF Urine Casts NONE /LPF Urine Mucus NEGATIVE /LPF Urine Culture Indicated YES White Blood Count 9.3 4.3-11.0 10^3/uL Red Blood Count 4.66 4.35-5.85 10^6/uL Hemoglobin 13.5 11.5-16.0 G/DL Hematocrit 40 35-52 % Mean Corpuscular Volume 85 80-99 FL Mean Corpuscular Hemoglobin 29 25-34 PG Mean Corpuscular Hemoglobin Concent 34 32-36 G/DL Red Cell Distribution Width 14.6 H 10.0-14.5 % Platelet Count 285 130-400 10^3/uL Mean Platelet Volume 10.6 H 7.4-10.4 FL Neutrophils (%) (Auto) 81 H 42-75 % Lymphocytes (%) (Auto) 13 12-44 % Monocytes (%) (Auto) 5 0-12 % Eosinophils (%) (Auto) 0 0-10 % Basophils (%) (Auto) 0 0-10 % Neutrophils # (Auto) 7.5 1.8-7.8 X 10^3 Lymphocytes # (Auto) 1.2 1.0-4.0 X 10^3 Monocytes # (Auto) 0.5 0.0-1.0 X 10^3 Eosinophils # (Auto) 0.0 0.0-0.3 10^3/uL Basophils # (Auto) 0.0 0.0-0.1 10^3/uL Sodium Level 136 135-145 MMOL/L Potassium Level 3.6 3.6-5.0 MMOL/L Chloride Level 104 98-107 MMOL/L Carbon Dioxide Level 20 L 21-32 MMOL/L Anion Gap 12 5-14 MMOL/L Blood Urea Nitrogen 9 7-18 MG/DL Creatinine 0.71 0.60-1.30 MG/DL Estimat Glomerular Filtration Rate > 60 BUN/Creatinine Ratio 13 Glucose Level 83 70-105 MG/DL Calcium Level 9.5 8.5-10.1 MG/DL Corrected Calcium 9.3 8.5-10.1 MG/DL Total Bilirubin 0.6 0.1-1.0 MG/DL Aspartate Amino Transf (AST/SGOT) 13 5-34 U/L Alanine Aminotransferase (ALT/SGPT) 25 0-55 U/L Alkaline Phosphatase 64 40-136 U/L Total Protein 8.0 6.4-8.2 GM/DL Albumin 4.2 3.2-4.5 GM/DL Vital Signs/I&O 08/29/19 11:30 Temp 36.5 Pulse 78 Resp 18 B/P (MAP) 118/51 (73) Pulse Ox 99 Blood Pressure Mean: 73 Progress Progress Note : Progress Note Seen and evaluated. Not nauseated currently. We will check basic labs and UA. A copy of the chart will be sent to Dr. Aaron. 1230: Labs reviewed. Does appear to be slightly dehydrated and this was discussed with the patient. She will try clear liquids and light diet with medicines at home. She is feeling better currently. Discharged home with return precautions. Patient verbalize understanding instructions and agreement with plan. Departure Impression Primary Impression: Nausea and vomiting during prior to 22 weeks gestation Disposition: HOME, SELF-CARE Condition: Stable Departure-Patient Inst. Decision time for Depature: 11:57 Referrals: ARTURO AARON MD (PCP/Family) Primary Care Physician Patient Instructions: Nausea and Vomiting of (DC) Add. Discharge Instructions: All discharge instructions reviewed with patient and/or family. Voiced understanding. Clear liquid diet for the next day or 2 and then advance as tolerated. Avoid heavy foods. Follow up with Dr. Goldberg on Saturday for recheck and further evaluation. Take medications as directed. Return for worse pain, persistent vomiting, weakness, breathing problems, chest pain or other concerns as needed. Scripts Promethazine HCl (Promethazine Tablet) 25 Mg Tablet 25 MG PO Q8H PRN for NAUSEA/VOMITING, #14 TAB 0 Refills Prov: LORI MARCELINO MD 08/29/19 Work/School Note: Work Release Form Date Seen in the Emergency Department: August 29, 2019 Return to Work: August 31, 2019 Restrictions: No Restrictions Copy Copies To 1: ARTURO AARON MD, TIMOTHY D MD August 29, 2019 11:54
[2019-08-29] MEDS ORDERED: PROM25TA14 PO (11:58)
[2019-08-29 12:03] LABS: BASOPHILS % (AUTO) 0 % (0-10); EOSINOPHILS % (AUTO) 0 % (0-10); HEMATOCRIT 40 % (35-52); HEMOGLOBIN 13.5 G/DL (11.5-16.0); LYMPHOCYTES # (AUTO) 1.2 X 10^3 (1.0-4.0); LYMPHOCYTES % (AUTO) 13 % (12-44); MEAN CORPUSCULAR HEMOGLOBIN 29 PG (25-34); MEAN CORPUSCULAR HGB CONC 34 G/DL (32-36); MEAN CORPUSCULAR VOLUME 85 FL (80-99); MEAN PLATELET VOLUME 10.6 FL (7.4-10.4); MONOCYTES # (AUTO) 0.5 X 10^3 (0.0-1.0); MONOCYTES % (AUTO) 5 % (0-12); NEUTROPHILS # (AUTO) 7.5 X 10^3 (1.8-7.8); NEUTROPHILS % (AUTO) 81 % (42-75); PLATELET COUNT 285 10^3/uL (130-400); RED CELL DISTRIBUTION WIDTH 14.6 % (10.0-14.5); WHITE BLOOD COUNT 9.3 10^3/uL (4.3-11.0)
[2019-08-29 12:04] LABS: BILIRUBIN,URINE NEGATIVE (NEGATIVE); CLARITY,URINE CLOUDY; COLOR,URINE YELLOW; GLUCOSE, URINE (UA) NEGATIVE (NEGATIVE); KETONES,URINE 2+ (NEGATIVE); LEUKOCYTE ESTERASE ,URINE NEGATIVE (NEGATIVE); NITRITE,URINE NEGATIVE (NEGATIVE); PROTEIN,URINE NEGATIVE (NEGATIVE)
[2019-08-29 12:12] LABS: BACTERIA,URINE FEW /HPF; RBC,URINE RARE /HPF
[2019-08-29 12:13] LABS: ALBUMIN 4.2 GM/DL (3.2-4.5); CHLORIDE 104 MMOL/L (98-107); POTASSIUM 3.6 MMOL/L (3.6-5.0); SODIUM 136 MMOL/L (135-145)
[2019-08-29 12:14] LABS: CALCIUM 9.5 MG/DL (8.5-10.1)
[2019-08-29 12:16] LABS: GLUCOSE 83 MG/DL (70-105)
[2019-08-29 12:17] LABS: CARBON DIOXIDE 20 MMOL/L (21-32)
[2019-08-29 12:18] LABS: BILIRUBIN,TOTAL 0.6 MG/DL (0.1-1.0)
[2019-08-29 12:19] LABS: ALKALINE PHOSPHATASE 64 U/L (40-136); CREATININE SERUM 0.71 MG/DL (0.60-1.30); GFR ESTIMATED > 60
[2019-08-29 12:20] LABS: BUN/CREATININE RATIO 13
[2019-08-29 12:22] LABS: ALANINE AMINOTRANSFERASE 25 U/L (0-55)
[2019-08-29 12:29] VITALS: BP 118/51
== END 2019-08-29 12:29 | disposition home or self-care (01) ==
LOC: EDUNIT# 11:19 → ER 11:20
DX: O21.0 Mild hyperemesis gravidarum (principal); Z3A.10 10 weeks gestation of pregnancy; Z79.52 Long term (current) use of systemic steroids; Z82.49 Family history of ischemic heart disease and other diseases of the circulatory system
CPT/HCPCS: 36415; 80053; 81000; 85025; 87088; 99282

== ENCOUNTER → 2019-10-23 | Outpatient (CLI) | payer BC, MEDICAID ==
[~2019-10-23] MED LIST changes: +PROM25TA14 PO
--- NOTE | 2019-10-23 11:54 | Diagnostic Imaging Report ---
INDICATION: survey. TECHNIQUE: Multiple real-time grayscale images were obtained over the gravid uterus. COMPARISON: 08/10/2019. FINDINGS: There is a single live fetus in a variable presentation. heart rate was recorded at 140 BPM. Placenta is posterior. No previa is detected. Amniotic fluid volume is normal. survey demonstrates kidneys, bladder, and stomach to be unremarkable. The brain is unremarkable. There is a four-chamber heart. There is a three-vessel cord with normal insertion. spine is somewhat limited in evaluation due to position. Biometrical measurements are as follows: Biparietal 4.12 cm, age 18 weeks 4 days. Head circumference 15.28 cm, age 18 weeks 2 days. Abdominal circumference 12.36 cm, age 18 weeks 0 days. Femur length 2.65 cm, age 18 weeks 1 days. Sonographic estimate age: 18 weeks 2 days. Sonographic estimated date of delivery: 03/23/2020. Estimated Weight: 222 gm (+/- 33 gm). LMP percentile: 40%. heart rate: 140 beats per minute. number: 1 of 1. IMPRESSION: Single live IUP of 18 weeks 2 days gestational age demonstrating normal interval growth when compared with prior exam. No complicating features are seen. spine is limited due to position and a follow-up could be performed. Dictated by: Dictated on workstation # [id number]
== END ==
LOC: RAD 09:22
PROVIDERS: ATTEND Family Medicine
DX: Z34.92 Encounter for supervision of normal pregnancy, unspecified, second trimester (principal); Z3A.18 18 weeks gestation of pregnancy
CPT/HCPCS: 76805

== ENCOUNTER → 2019-11-18 | Outpatient (CLI) | payer MEDICAID ==
--- NOTE | 2019-11-18 10:38 | Diagnostic Imaging Report ---
INDICATION: survey. TECHNIQUE: Multiple real-time grayscale images were obtained over the gravid uterus. COMPARISON: 10/23/2019. FINDINGS: There is a single live fetus in a variable presentation. heart rate was recorded at 139 BPM. The posterior placenta is low lying and in a marginal location with the tip approximately 1 cm from the internal cervical os. Amniotic fluid index is 9.9 cm. survey demonstrates kidneys, bladder, and stomach to be unremarkable. Brain is unremarkable. There is a four-chamber heart. There is a three-vessel cord with normal insertion. spine is unremarkable. Biometrical measurements are as follows: Biparietal 5.16 cm, age 21 weeks 5 days. Head circumference 19.61 cm, age 21 weeks 6 days. Abdominal circumference 16.60 cm, age 21 weeks 5 days. Femur length 3.92 cm, age 22 weeks 5 days. Sonographic estimate age: 22 weeks 0 days. Sonographic estimated date of delivery: 03/23/2020. Estimated Weight: 470 gm (+/- 69 gm). LMP percentile: 53%. heart rate: 139 beats per minute. number: 1 of 1. IMPRESSION: Single live IUP of 22 weeks gestational age, demonstrating normal interval growth when compared with prior exam. survey is unremarkable. The posterior placenta is in a marginal location in relation to the internal cervical os. Dictated by: Dictated on workstation # [id number]
== END ==
LOC: RAD 09:23
PROVIDERS: ATTEND Family Medicine
DX: Z34.92 Encounter for supervision of normal pregnancy, unspecified, second trimester (principal); Z3A.22 22 weeks gestation of pregnancy
CPT/HCPCS: 76805

== ENCOUNTER 2020-03-12 08:52 | Outpatient (CLI) | payer MEDICAID ==
[~2020-03-12] VITALS: Ht 154 cm; Wt 90.5 kg
--- NOTE | 2020-03-12 09:00 | NUR ---
DEON POTTS presented to unit via ambulation from ED with c/o back pain x1 week, nausea, no appetite, and green/yellow vaignal discharge. Pt. weighed, gowned, voided, and to bed. EFHM and TOCO applied, VS taken. Pt. oriented to bed controls, call light, TV, heat, and A/C controls.
--- NOTE | 2020-03-12 09:05 | NUR ---
pt reports back pain and ctx's x1 week approx. 20 mins apart. reports +FM. denies vaginal bleeding or leaking fluid. reports yellow-greenish discharge x2 days. no odor, itching or burning present with D/C. no recent change in sexual partners or recent intercourse reported. states having decreased appetite today with nausea- no emesis reported.
[2020-03-12 09:10] VITALS: BP 110/72
[2020-03-12 09:17] VITALS: BP 110/72
[2020-03-12 09:38] LABS: BILIRUBIN,URINE NEGATIVE (NEGATIVE); CLARITY,URINE CLEAR; COLOR,URINE YELLOW; GLUCOSE, URINE (UA) NEGATIVE (NEGATIVE); KETONES,URINE NEGATIVE (NEGATIVE); LEUKOCYTE ESTERASE ,URINE 3+ (NEGATIVE); NITRITE,URINE NEGATIVE (NEGATIVE); PH,URINE 7.5 (5-9); PROTEIN,URINE NEGATIVE (NEGATIVE)
--- NOTE | 2020-03-12 09:46 | NUR ---
wet prep culture obtained pior to SVE. closed, thick and posterior. thick vaginal discharge noted on glove.
--- NOTE | 2020-03-12 09:48 | NUR ---
was called r/t pt's admit c/o's. order received for wet prep and GC/Chlamydia swab.
[2020-03-12 09:58] LABS: WBC,URINE 25-50 /HPF
[2020-03-12 09:59] LABS: BACTERIA,URINE MODERATE /HPF
--- NOTE | 2020-03-12 10:15 | NUR ---
GC/Chlamydia culture obtained. thick, green/yellow discharge noted coming from vaginal area- on labia minora. vaginal tenderness noted during exams and cultures by RN and confirmed by pt.
--- NOTE | 2020-03-12 10:41 | NUR ---
was called with wet prep results. Flagyl 500mg p.o. BID x7 days. given first dose now- call Rx into pharmacy of choice. dismissal orders received.
[2020-03-12] MEDS ORDERED: metroNIDAZOLE 500 MG (FLAGYL) TAB PO ONE (10:45)
--- NOTE | 2020-03-12 10:53 | NUR ---
dismissal instructions given, verbalizes understanding. reviewed Flagyl Rx administration instructions, instructed pt to finish entire Rx. signature page signed, placed on chart.
--- NOTE | 2020-03-12 10:55 | NUR ---
pt ambulated to private vehicle with no sx's of distress noted. pt stable upon dismissal.
--- NOTE | 2020-03-12 10:58 | NUR ---
Flagyl 500mg p.o. BID x7 days Rx called into [facility] pharmacy per pt's request.
--- NOTE | 2020-03-14 11:05 | Physician Query-Final Dx ---
Clinic Account Progress/Dx Physician Query: Please give diagnosis Please include # weeks gestation Date of Service Mar 12, 2020 at 08:52 RUY NULL Mar 14, 2020 11:05
== END 2020-03-12 10:55 | disposition home or self-care (01) ==
LOC: LDRP 08:52 → WSo 08:52
PROVIDERS: ATTEND Family Medicine
DX: O62.9 Abnormality of forces of labor, unspecified (principal); Z3A.00 Weeks of gestation of pregnancy not specified
CPT/HCPCS: 36415; 81000; 87088; 87210; 87491; 87591; 99214

== ENCOUNTER 2020-03-15 05:34 | Outpatient (RCR) | payer MEDICAID ==
[~2020-03-15] VITALS: Ht 154.9 cm; Wt 90.9 kg
== END 2020-03-15 10:53 | disposition home or self-care (01) ==
LOC: PREOP 05:34
PROVIDERS: ATTEND Obstetrics & Gynecology
DX: Z01.812 Encounter for preprocedural laboratory examination (principal); Z20.828 Contact with and (suspected) exposure to other viral communicable diseases
CPT/HCPCS: 87635

== ENCOUNTER 2020-03-17 05:17 | Inpatient (IN) | payer MEDICAID ==
[2020-03-17] VITALS (9 sets, daily range): BP systolic 103–133; BP diastolic 68–82
[~2020-03-17] VITALS: Ht 154.9 cm; Wt 90.0 kg
[~2020-03-17 05:17] MED LIST changes: +CITRIC ACID/SOB CIT (BICITRA) 30 ML UDC ONE; +FAMOTIDINE 20MG/2ML IV (PEPCID) ONE; +METOCLOPRAMIDE INJ 10 MG/2 ML (REGLAN) ONE
--- NOTE | 2020-03-17 05:25 | NUR ---
DEON POTTS presented to unit via ambulation from home/ED, accompanied by mother, for REPEAT C SECTION. DEON POTTS weighed, gowned, voided, and to bed. EFHM and TOCO applied, VS taken. DEON POTTS oriented to bed controls, call light, TV, heat, and A/C controls.
[2020-03-17] MEDS ORDERED: metroNIDAZOLE 500MG/100ML IVPB 100 ML ONE (05:27)
[2020-03-17] MEDS ORDERED: ceFAZolin 2 GM IV Premixed 50 ML ONE (05:28)
[2020-03-17] MEDS ORDERED: fentaNYL INJECTION 100 MCG/2 ML AMP ONE (06:50)
[2020-03-17] MEDS ORDERED: OXYTOCIN PRE-MIX DRIP 1,000 ML IV ONE (06:52)
[2020-03-17] MEDS ORDERED: FAMOTIDINE 20MG/2ML IV (PEPCID) IV ONE (07:00)
[2020-03-17] MEDS ORDERED: metroNIDAZOLE 500MG/100ML IVPB 100 ML IV ONE ×2 (07:00→07:30)
[2020-03-17] MEDS ORDERED: ceFAZolin 2 GM IV Premixed 50 ML IV ONE (07:00)
[2020-03-17] MEDS ORDERED: CITRIC ACID/SOB CIT (BICITRA) 30 ML UDC PO ONE ×2 (07:00)
[2020-03-17] MEDS ORDERED: METOCLOPRAMIDE INJ 10 MG/2 ML (REGLAN) IV ONE (07:00)
[2020-03-17] MEDS ORDERED: LACTATED RINGERS 1,000 ML IV PRN ×2 (07:00)
[2020-03-17] MEDS ORDERED: BUPIVACAINE 0.5% 30 ML (SENSORCAINE) VIAL ONE (07:05)
[2020-03-17] MEDS ORDERED: PREN1TAB79 PO (07:14)
--- NOTE | 2020-03-17 07:17 | NUR ---
To OR per ambulation. Accompanied by OR staff.
[2020-03-17] MEDS ORDERED: D5 LR IV SOLUTION 1,000 ML IV SCH ×2 (07:30→08:15)
[2020-03-17] MEDS ORDERED: ceFAZolin INJECTION 2,000 MG in WATER (STERILE) FOR INJECTION 10 ML IV ONE (07:30)
[2020-03-17] MEDS ORDERED: TETANUS,DIPTH,PERTUSS P/F (BOOSTRIX) 0.5 ML VIAL IM ONE (08:15)
[2020-03-17] MEDS ORDERED: MEASLES,MUMPS,RUBELLA 1 EA INJ SC ONE (08:15)
[2020-03-17] MEDS ORDERED: ONDANSETRON 4 MG/2 ML (SDV) Z0FRAN IVP PRN (08:15)
[2020-03-17] MEDS ORDERED: IBUP-1780 PO (08:23)
[2020-03-17] MEDS ORDERED: OXYC1TAB12 PO (08:23)
[2020-03-17] MEDS ORDERED: DCS100C PO (08:23)
--- NOTE | 2020-03-17 08:24 | Discharge Inst-Surgical ---
Discharge Inst-Surgical Depart Medication/Instructions New, Converted or Re-Newed RX: RX on Chart Consults/Follow Up Patient Instructions: As directed Orders & Referrals Follow Up Appt: RTC 1 week for incision check With Dr. Crespo. Call to make follow up appt. for patient in [address] Gray Wound Care: Remove pastora, apply benzoin and steri strips. Activity Per routine post instructions. Please call in RX to patient pharmacy. Diet as tolerated Patient may shower or tub bathe as desired. Continue home meds Activity Activity as Tolerated: No Diet Discharge Diet: No Restrictions WINIFRED CRESPO MD Mar 17, 2020 08:24
[2020-03-17 08:39] LABS: HEMATOCRIT 33 % (35-52); HEMOGLOBIN 10.3 G/DL (11.5-16.0); MEAN CORPUSCULAR HEMOGLOBIN 26 PG (25-34); MEAN CORPUSCULAR HGB CONC 32 G/DL (32-36); MEAN CORPUSCULAR VOLUME 83 FL (80-99); PLATELET COUNT 267 10^3/uL (130-400); WHITE BLOOD COUNT 8.1 10^3/uL (4.3-11.0)
[2020-03-17 08:40] LABS: BASOPHILS % (AUTO) 0 % (0-10); EOSINOPHILS # (AUTO) 0.1 10^3/uL (0.0-0.3); EOSINOPHILS % (AUTO) 1 % (0-10); LYMPHOCYTES # (AUTO) 1.5 X 10^3 (1.0-4.0); LYMPHOCYTES % (AUTO) 18 % (12-44); MEAN PLATELET VOLUME 10.1 FL (7.4-10.4); MONOCYTES # (AUTO) 0.5 X 10^3 (0.0-1.0); MONOCYTES % (AUTO) 6 % (0-12); NEUTROPHILS % (AUTO) 74 % (42-75)
[2020-03-17] MEDS ORDERED: DOCUSATE SODIUM 100 MG (COLACE) CAP PO SCH (09:00)
--- NOTE | 2020-03-17 09:05 | NUR ---
Transferred to 308 from PACU. Accompanied by this RN, mother in law and infant in crib. Discussed pain medications, need for urination/ambulation within 6 hrs, diet/ menu, stork meal, folder, room temperature control,and ice pack to abdomen for pain prn. Verbalized understanding.
[2020-03-17] MEDS: KETOROLAC 30 MG/ML VIAL IVP SCH ×3 (09:23→20:48)
--- NOTE | 2020-03-17 09:52 | OPERATIVE REPORT ---
DATE OF SERVICE: 03/17/2020 SYSTEM CONFIGURATION SPECIALIST: Dr. Gray. CRM SOLUTION ARCHITECT FOR DELIVERY: Dr. Gray. PREOPERATIVE DIAGNOSIS: Term with previous at 39 weeks' gestation. POSTOPERATIVE DIAGNOSIS: Term with previous at 39 weeks' gestation. OPERATIVE PROCEDURE: Repeat low transverse delivery of a viable female with Apgars of 8 and 9 at 1 and 5 minutes respectively, weight 7 pounds 11 ounces, cord blood pH of 7.33 and a time of 7:44 a.m. OPERATIVE DESCRIPTION: With the patient in the supine position under satisfactory spinal analgesia, she was prepped and draped in the usual fashion for abdominal surgery after being placed supine on the table. Cheng catheter was placed in the urinary bladder. A repeat Pfannenstiel incision was made through the skin with scalpel, the patient's abdomen entered in the usual manner. Bladder retractor placed in position, clean scalpel was used to make a 4 cm hysterotomy incision transversely across the lower uterine segment. That incision was extended bluntly. Copious clear fluid was released on hysterotomy. Petit forceps were applied to facilitate the delivery of the vigorous viable female . Infant had stats and Apgars as noted above. The infant was bulb suctioned on delivery of the head and again on completion of delivery. The umbilical cord was doubly clamped and cut and Dr. Gray took the infant to the warmer. The placenta delivered spontaneously Driver. It was normal with a 3-vessel cord. The uterus was exteriorized, anterior wiped, clean with a wet laparotomy sponge. Uterine incision was then closed with a running locked suture of 2-0 Vicryl. Hemostasis was complete. The uterus was returned to the abdominal cavity. All blood clot and debris removed from the abdominal cavity. With sponge and needle counts correct and hemostasis assured, the anterior parietal peritoneum was closed with running suture of 2-0 Vicryl. Rectus muscles were closed with that suture as well. The rectus fascia was closed with 2-0 Vicryl, subcutaneous tissue was closed with 2-0 Vicryl and the skin was stapled. Sponge and needle counts were correct on completion of the procedure. Estimated blood loss was around 500 mL. The patient tolerated the procedure well and was transferred to the recovery room in a stable condition. The infant remained with the patient under the care of Dr. Gray. Job ID: [id number] DocumentID: [id number] Dictated Date: 03/17/2020 08:10:20 Display Carver Date: 03/17/2020 09:51:41 Dictated By: WINIFRED ROACH MD
[2020-03-17] MEDS ORDERED: diphenhydrAMINE 50 MG/ML INJ (BENADRYL) IVP ONE (10:15)
[2020-03-17] MEDS: OXYTOCIN PRE-MIX DRIP 500 ML IV SCH (12:15)
--- NOTE | 2020-03-17 12:30 | NUR ---
Report from Veronica Pedroza RN
[2020-03-17] MEDS: oxyCODONE/APAP 10/325MG (PERCOCET 10) TABLET PO PRN ×3 (12:34→22:14)
--- NOTE | 2020-03-17 14:30 | NUR ---
Pt assisted up to bathroom at this time per this RN. +void, 500 ml clear, yellow urine. Pericare performed. Pt assisted back to bed without incident. Scheduled toradol given. No other needs or concerns voiced at this time.
[2020-03-17] MEDS: DOCUSATE SODIUM 100 MG (COLACE) CAP PO SCH (20:47)
--- NOTE | 2020-03-18 03:05 | NUR ---
VSS. TORADOL GIVEN. PT DENIES ANY NEEDS.
[2020-03-18] MEDS: KETOROLAC 30 MG/ML VIAL IVP SCH (03:06)
[2020-03-18] MEDS: IBUPROFEN 800 MG (MOTRIN) TAB PO SCH ×4 (06:00→17:40)
--- NOTE | 2020-03-18 07:05 | NUR ---
DRESSING OFF AND IV REMOVED.
--- NOTE | 2020-03-18 07:29 | Anesthesia-Regional Post-Op ---
Regional Patient Condition Mental Status: Alert, Oriented x3 Circulation: Same as Pre-Op Headache: Absent Sensation: Full Recovery Motor Block: Absent Post Op Complications Complications None Follow Up Care/Instructions Patient Instructions None needed. Anesthesia/Patient Condition Patient is doing well, no complaints, stable vital signs, no apparent adverse anesthesia problems. No complications reported per nursing. SPRING SUMNER CRNA Mar 18, 2020 07:29
--- NOTE | 2020-03-18 07:34 | Progress Note ---
Standard Progress Note Progress Notes/Assess & Plan Date Seen by a Provider: Mar 18, 2020 Time Seen by a Provider: 07:33 Progress/Assessment & Plan This patient is without complaint. She is ambulating, voiding, tolerating oral intake well and has good pain control. Vital Signs Date Time Temp Pulse Resp B/P (MAP) Pulse Ox O2 Delivery O2 Flow Rate FiO2 03/17/20 16:00 36.8 62 18 111/74 (86) 96 Room Air 03/17/20 12:22 37.2 73 16 111/71 (84) 96 Room Air 03/17/20 11:05 Room Air 03/17/20 09:30 36.8 72 16 117/70 (86) 97 Room Air 03/17/20 08:56 36.5 16 112/82 (92) 98 Room Air 03/17/20 08:56 Room Air 03/17/20 08:43 Room Air 03/17/20 08:43 36.4 20 133/68 (89) 98 Room Air 03/17/20 08:29 03/17/20 08:28 Room Air 03/17/20 08:28 36.4 20 103/75 (84) 96 Room Air 03/17/20 08:13 36.8 20 116/72 (87) 98 Room Air 03/17/20 08:13 Room Air I & O 03/18/20 07:00 Intake Total 150 ml Output Total 1250 ml Balance -1100 ml Vital signs are stable. Patient is afebrile. Fundus is firm below the umbilicus and nontender. The surgical incision is clean dry and intact. Extremities show no clubbing or cyanosis. There is no Homans' sign. Assessment and plan Postoperative day #1 status post repeat delivery doing well. Plan is for routine convalescent care WINIFRED ROACH MD Mar 18, 2020 07:34
[2020-03-18 07:40] VITALS: BP 127/81
[2020-03-18] MEDS: DOCUSATE SODIUM 100 MG (COLACE) CAP PO SCH ×3 (07:57→19:32)
[2020-03-18] MEDS: oxyCODONE/APAP 10/325MG (PERCOCET 10) TABLET PO PRN ×3 (07:58→19:32)
--- NOTE | 2020-03-18 11:40 | NUR ---
Pt declines TDAP and flu immunizations.
[2020-03-18] MEDS: OXYTOCIN PRE-MIX DRIP 500 ML IV SCH (11:50)
[2020-03-18 12:06] VITALS: BP 108/71
[2020-03-18 16:27] VITALS: BP 104/65
[2020-03-18 20:00] VITALS: BP 116/59
[2020-03-19] MEDS: IBUPROFEN 800 MG (MOTRIN) TAB PO SCH ×2 (01:10→06:55)
[2020-03-19 02:00] VITALS: BP 113/61
[2020-03-19] MEDS: oxyCODONE/APAP 10/325MG (PERCOCET 10) TABLET PO PRN (06:55)
[2020-03-19 08:55] VITALS: BP 110/64
[2020-03-19] MEDS: DOCUSATE SODIUM 100 MG (COLACE) CAP PO SCH (09:00)
--- NOTE | 2020-03-19 10:25 | Progress Note ---
Standard Progress Note Progress Notes/Assess & Plan Date Seen by a Provider: Mar 19, 2020 Time Seen by a Provider: 10:23 Progress/Assessment & Plan This patient is without complaint. She is ambulating, voiding, tolerating oral intake well and has good pain control. Vital Signs Date Time Temp Pulse Resp B/P (MAP) Pulse Ox O2 Delivery O2 Flow Rate FiO2 03/17/20 16:00 36.8 62 18 111/74 (86) 96 Room Air 03/17/20 12:22 37.2 73 16 111/71 (84) 96 Room Air 03/17/20 11:05 Room Air 03/17/20 09:30 36.8 72 16 117/70 (86) 97 Room Air 03/17/20 08:56 36.5 16 112/82 (92) 98 Room Air 03/17/20 08:56 Room Air 03/17/20 08:43 Room Air 03/17/20 08:43 36.4 20 133/68 (89) 98 Room Air 03/17/20 08:29 03/17/20 08:28 Room Air 03/17/20 08:28 36.4 20 103/75 (84) 96 Room Air 03/17/20 08:13 36.8 20 116/72 (87) 98 Room Air 03/17/20 08:13 Room Air I & O 03/18/20 07:00 Intake Total 150 ml Output Total 1250 ml Balance -1100 ml Vital signs are stable. Patient is afebrile. Fundus is firm below the umbilicus and nontender. The surgical incision is clean dry and intact. Extremities show no clubbing or cyanosis. There is no Homans' sign. Assessment and plan Postoperative day #1 status post repeat delivery doing well. Plan is for routine convalescent care March 19, 2020 This patient is without complaint. She is ambulating, voiding, tolerating oral intake well and has good pain control. Patient is requesting discharge home. Vital Signs Date Time Temp Pulse Resp B/P (MAP) Pulse Ox O2 Delivery O2 Flow Rate FiO2 03/19/20 08:55 37.0 80 16 110/64 (79) 98 Room Air 03/19/20 02:00 36.8 64 18 113/61 (78) 98 Room Air 03/18/20 20:00 36.6 78 18 116/59 (78) 98 Room Air 03/18/20 16:27 37.0 68 16 104/65 (78) 97 Room Air 03/18/20 12:06 36.7 69 16 108/71 (83) 97 Room Air I & O 03/19/20 07:00 Intake Total 1500 ml Output Total 1200 ml Balance 300 ml Vital signs are stable. Patient is afebrile. Fundus is firm below the umbilicus and nontender. The surgical incision is clean dry and intact. Extremities show no clubbing or cyanosis. There is no Homans' sign. Assessment and plan postoperative day #2 status post repeat delivery at 39 weeks gestation. Plan is for discharge home with follow-up in clinic Final Diagnosis 39-week repeat delivery WINIFRED ROACH MD Mar 19, 2020 10:25
--- NOTE | 2020-03-19 11:02 | NUR ---
Removed 24 pastora. Incision clean and dry. Edges closed and sides approximate. Color pink no drainage. Tincture Benzoin applied and allowed to dry x 1 minute. Steri strips applied . Pt instructed to leave steri strips in place until seen via Dr Crespo at 1 week appointment. Pt verbalized understanding.
--- NOTE | 2020-03-19 12:30 | NUR ---
DEON POTTS demonstrates understanding of discharge instructions and accurately returns instructions upon questioning. Copy of Post-Discharge Instructions and Medication Discharge Instructions given to patient. DEON POTTS is able to manage continuing needs after discharge. Patients belongings returned to patient. Skin dry and intact; no breakdown noted. Patient discharged from [facility] on 03-19-20 at 1230. DEON POTTS left floor via wheel chair, accompanied by mother -in-law and women services staff.No concerns voiced via pt.
== END 2020-03-19 12:30 | disposition home or self-care (01) | DRG 788 ==
LOC: LDRP 05:17
PROVIDERS: ADMIT Obstetrics & Gynecology; ATTEND Obstetrics & Gynecology
PROC: 10D00Z1 Extraction of Products of Conception, Low, Open Approach (ICD-10-PCS; principal; 2020-03-17 07:19)
DX: O34.211 Maternal care for low transverse scar from previous cesarean delivery (principal); Z3A.39 39 weeks gestation of pregnancy; Z37.0 Single live birth
CPT/HCPCS: 36415; 85025; 86850; 86900; 86901; 90707; 94664

== ENCOUNTER 2021-10-09 06:11 | Emergency (ER) | payer MEDICAID ==
[~2021-10-09 06:11] MED LIST changes: -CITRIC ACID/SOB CIT (BICITRA) 30 ML UDC ONE; +CYCL10TA25 PO; -CYCL10TA9 PO; +DOCU-239 PO; -FAMOTIDINE 20MG/2ML IV (PEPCID) ONE; +IBUP-1780 PO; -METOCLOPRAMIDE INJ 10 MG/2 ML (REGLAN) ONE; +OXYC1TAB12 PO; +PREN1TAB79 PO
--- NOTE | 2021-10-09 06:36 | ED Lower Extremity ---
General Stated Complaint: LEFT ANKLE PAIN,STEPPED IN HOLE Source: patient History of Present Illness Date Seen by Provider: Oct 09, 2021 Time Seen by Provider: 06:26 Initial Comments PT ARRIVES VIA POV FROM HOME C/O LEFT FOOT AND ANKLE INJURY STATES SHE STEPPED IN A HOLE ON SATURDAY AFTERNOON AND TWISTED HER LEFT FOOT AND ANKLE C/O CONTINUED PAIN SINCE THEN NO PARESTHESIAS OR MOTOR DEFICITS NO OTHER INJURIES FROM THE INCIDENT NO PRIOR INJURY TO THIS FOOT/ANKLE HAS NOT TAKEN ANYTHING FOR PAIN LMP--4 WEEKS AGO. S/P BTL PCP: DR. AARON Allergies and Home Medications Allergies Coded Allergies: No Known Drug Allergies (Unverified , 06/20/13) Patient Home Medication List Home Medication List Reviewed: Yes Docusate Sodium (Dok) 100 Mg Capsule, 100 MG PO BID Prescribed by: WINIFRED RAHMAN on 03/17/20 0823 Ibuprofen (Ibuprofen) 800 Mg Tablet, 800 MG PO Q6HR Prescribed by: WINIFRED RAHMAN on 03/17/20 0823 Ibuprofen (Ibuprofen) 800 Mg Tablet, 800 MG PO Q6H PRN for PAIN-MILD Prescribed by: LINA BATISTA on 10/09/21 0709 Oxycodone HCl/Acetaminophen (Percocet 10-325 mg Tablet) 1 Each Tablet, 1 TAB PO Q4HR PRN for PAIN-MODERATE (5-7) Prescribed by: WINIFRED RAHMAN on 03/17/20 0823 Vit W-Ca,Fe,FA(<1 mg) ( Vitamins) 1 Each Tablet, 1 EACH PO DAILY, (Reported) Entered as Reported by: CAYETANO ZHANG on 03/17/20 0714 Review of Systems Constitutional: no symptoms reported : No LMP: September 11, 2021 Control/STD Prophylaxis: Other (BTL) Musculoskeletal: see HPI Skin: no symptoms reported Psychiatric/Neurological: No Symptoms Reported Past Xeyatwy-Vrlglz-Rvzyjd Hx Patient Social History Tobacco Use?: No Substance use?: No Alcohol Use?: No Immunizations Up To Date Tetanus Booster (TDap): Unknown PED Vaccines UTD: Yes Seasonal Allergies Seasonal Allergies: No Past Medical History Surgeries: Yes ( X 2; RIGHT WRIST GANGLION CYST) Section, Orthopedic, Tubal Ligation Respiratory: No Cardiac: No Neurological: No : No Reproductive Disorders: No 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 oz. 72.618640qu; 37.50 BMI Method:Stated General Appearance: WD/WN, no apparent distress, other (WALKS WITHOUT DIFFICULTY) Legs: left leg normal inspection Knees: left knee normal inspection Ankles: left ankle bone tenderness, left ankle limited range of motion, left ankle pain, left ankle soft tissue tenderness, left ankle other (NO SWELLING OR EXTERNAL EVIDENCE OF TRAUMA) Feet: left foot bone tenderness, left foot limited range of motion, left foot pain, left foot soft tissue tenderness, left foot other (NO SWELLING OR EXTERNAL EVIDENCE OF TRAUMA) Neurologic/Tendon: normal sensation, normal motor functions, normal tendon functions 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, no motor/sensory deficits, alert, normal mood/affect, oriented x 3 Skin: normal color, warm/dry; No ecchymosis Procedures/Interventions Splinting and Joint Reduction : Immobilizers: Step Light Walker s/m/lg Progress/Results/Core Measures Results/Orders My Orders Orders - LINA BATISTA DO Foot, Left, 3 Views (10/09/21 06:32) Ankle, Left, 3 Views (10/09/21 06:32) Vital Signs/I&O 10/09/21 06:55 Temp 36.8 Pulse 76 Resp 20 B/P (MAP) 121/82 (95) Pulse Ox 100 O2 Delivery Room Air Diagnostic Imaging Comments XRAYS--PER RADIOLOGIST REPORTS AT 0710 LEFT FOOT: FINDINGS: The osseous structures of the foot are intact. Joint spaces are maintained. Very small plantar calcaneal spur. Alignment anatomic. Soft tissues appearing unremarkable. IMPRESSION: 1. Negative for acute findings of the foot. LEFT ANKLE: FINDINGS: The bony alignment is anatomic. The talar dome is intact. The ankle mortise is maintained. Small plantar calcaneal spur. There is no acute fracture or dislocation. Soft tissues are unremarkable. IMPRESSION: Negative for acute bony abnormality of the ankle. Reviewed: Reviewed by Me Departure Impression Primary Impression: LEFT ANKLE AND FOOT SPRAIN Disposition: HOME, SELF-CARE Condition: Stable Departure-Patient Inst. Decision time for Depature: 07:10 Referrals: ARTURO AARON MD (PCP/Family) Primary Care Physician Patient Instructions: Sprain (DC), Walking Boot Add. Discharge Instructions: ICE TO AREA AT 20 MINUTE INTERVALS WEAR BOOT NEEDED FOR COMFORT ELEVATE FOOT MUCH POSSIBLE FOLLOW UP WITH YOUR DR IN 1 WEEK IF NO BETTER Scripts Ibuprofen (Ibuprofen) 800 Mg Tablet 800 MG PO Q6H PRN for PAIN-MILD, #20 TAB Prov: LINA BATISTA DO 10/09/21 LINA BATISTA DO Oct 09, 2021 06:36
--- NOTE | 2021-10-09 07:07 | Diagnostic Imaging Report ---
INDICATION: foot pain. TECHNIQUE: 3 views of the left foot CORRELATION STUDY: None FINDINGS: The osseous structures of the foot are intact. Joint spaces are maintained. Very small plantar calcaneal spur. Alignment anatomic. Soft tissues appearing unremarkable. IMPRESSION: 1. Negative for acute findings of the foot. Dictated by: Dictated on workstation # [id number]
[2021-10-09] MEDS ORDERED: IBUP-1780 PO (07:09)
--- NOTE | 2021-10-09 07:10 | Diagnostic Imaging Report ---
INDICATION: Left ankle pain TECHNIQUE: Three views of the left ankle CORRELATION STUDY: None FINDINGS: The bony alignment is anatomic. The talar dome is intact. The ankle mortise is maintained. Small plantar calcaneal spur. There is no acute fracture or dislocation. Soft tissues are unremarkable. IMPRESSION: Negative for acute bony abnormality of the ankle. Dictated by: Dictated on workstation # [id number]
[2021-10-09 07:30] VITALS: BP 121/82
== END 2021-10-09 07:30 | disposition home or self-care (01) ==
LOC: EDUNIT# 06:11 → ER 06:15
DX: S93.402A Sprain of unspecified ligament of left ankle, initial encounter (principal); S93.602A Unspecified sprain of left foot, initial encounter; W18.42XA Slipping, tripping and stumbling without falling due to stepping into hole or opening, initial encounter; X50.1XXA Overexertion from prolonged static or awkward postures, initial encounter
CPT/HCPCS: 73610; 73630

== ENCOUNTER 2022-05-06 06:13 | Emergency (ER) | payer MEDICAID ==
[~2022-05-06] VITALS: Ht 157 cm; Wt 73.0 kg
--- NOTE | 2022-05-06 06:56 | ED Cough/URI ---
General Chief Complaint: COVID19 Suspect/Confirmed Stated Complaint: BODYACHES/SORE THROAT/RUNNY NOSE/SNEEZING/COUGH Nursing Triage Note: TO ED VIA POV AND AMBULATORY TO ROOM 5 WITH C/O "JUST NOT FEELING WELL". NO TYLENOL, MOTRIN OR OTC MEDS FOR COMPLAINTS. Source: patient Exam Limitations: no limitations History of Present Illness Date Seen by Provider: May 06, 2022 Time Seen by Provider: 06:40 Initial Comments Patient is a 31-year-old female with a negative past medical history who presents to the emergency room with 3 days of body aches sore throat, runny nose congestion, dry cough. She states she coughed this morning to the point of vomiting and that is when she decided to come to the emergency department. She denies fevers or chills. No diarrhea or urinary complaints. No sick contacts that she is aware of. 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 She is not COVID vaccinated, she is fully vaccinated. She is not allergic to anything. She does not smoke. She has been taking NyQuil for her symptoms last dose was 7 PM last night. No other Tylenol, aspirin or ibuprofen. Currently not nauseous. No headache. Timing/Duration: other (3 days) Severity/Quality: moderate, dry cough Prior Episodes/Possible Cause: occasional episodes Modifying Factors: Improves With Other (nyquil) Associated Symptoms: cough, headache, nasal congestion, nasal drainage, sore throat Allergies and Home Medications Allergies Coded Allergies: No Known Drug Allergies (Unverified , 06/20/13) Patient Home Medication List Home Medication List Reviewed: Yes Docusate Sodium (Dok) 100 Mg Capsule, 100 MG PO BID Prescribed by: WINIFRED RAHMAN on 03/17/20822 Ibuprofen (Ibuprofen) 800 Mg Tablet, 800 MG PO Q6HR Prescribed by: WINIFRED RAHMAN on 03/17/20822 Ibuprofen (Ibuprofen) 800 Mg Tablet, 800 MG PO Q6H PRN for PAIN-MILD Prescribed by: LINA BATISTA on 10/09/21 0709 Oxycodone HCl/Acetaminophen (Percocet 10-325 mg Tablet) 1 Each Tablet, 1 TAB PO Q4HR PRN for PAIN-MODERATE (5-7) Prescribed by: WINIFRED RAHMAN on 03/17/20 08 Vit W-Ca,Fe,FA(<1 mg) ( Vitamins) 1 Each Tablet, 1 EACH PO DAILY, (Reported) Entered as Reported by: CAYETANO ZHANG on 03/17/20 0714 Review of Systems Review of Systems Constitutional: see HPI, malaise EENTM: nose congestion, throat pain Respiratory: cough Cardiovascular: no symptoms reported Gastrointestinal: vomiting (post tussive) : No LMP: Apr 15, 2022 Musculoskeletal: other (body aches) Skin: no symptoms reported Psychiatric/Neurological: Headache All Other Systems Reviewed Negative Unless Noted: Yes Past Wkzmmjd-Alhqya-Rcispd Hx Patient Social History Tobacco Use?: No Substance use?: No Alcohol Use?: No Immunizations Up To Date Tetanus Booster (TDap): Unknown PED Vaccines UTD: Yes Influenza Vaccine Up-to-Date: Yes; Up-to-Date COVID19 Vaccine 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: N/A Seasonal Allergies Seasonal Allergies: No Past Medical History Surgeries: Yes ( X 2; RIGHT WRIST GANGLION CYST) Section, Orthopedic, Tubal Ligation Respiratory: No Cardiac: No Neurological: No Last Menstrual Period: Apr 16, 2022 Reproductive Disorders: No 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 oz. 72.151115um; 29.00 BMI Method:Stated General Appearance: WD/WN, no apparent distress Eyes: Bilateral Eye Normal Inspection, Bilateral Eye PERRL, Bilateral Eye EOMI HEENT: PERRL/EOMI, normal ENT inspection, TMs normal, pharynx normal Neck: full range of motion, supple Respiratory: lungs clear, normal breath sounds, no respiratory distress, no accessory muscle use Cardiovascular: regular rate, rhythm (107) Extremities: normal range of motion, normal inspection Neurologic/Psychiatric: alert, normal mood/affect, oriented x 3 Skin: normal color, warm/dry Progress/Results/Core Measures Suspected Sepsis SIRS Temperature: Pulse: 100 Respiratory Rate: 16 Blood Pressure 119 /87 Mean: 98 Results/Orders Lab Results Laboratory Tests Test 1/22/23 07:20 Range/Units Influenza Type A (RT-PCR) Not Detected Not Detecte Influenza Type B (RT-PCR) Not Detected Not Detecte SARS-CoV-2 RNA (RT-PCR) Not Detected Not Detecte My Orders Orders - ELVA HERNANDEZ MD Covid 19 Inhouse Test (05/06/22 06:53) Influenza A And B By Pcr (05/06/22 06:53) Isolation Central Supply Req (05/06/22 06:53) Ibuprofen Tablet (Motrin Tablet) (05/06/22 07:00) Medications Given in ED Current Medications Medications Dose Ordered Sig/Mumtaz Route Start Time Stop Time Status Last Admin Dose Admin Ibuprofen 600 mg ONCE ONCE PO 05/06/22 07:00 05/06/22 07:02 DC 05/06/22 07:05 600 MG Vital Signs/I&O 05/06/22 05/06/22 06:21 06:21 Temp 36.3 Pulse 100 Resp 16 B/P (MAP) 119/87 (98) Pulse Ox 98 O2 Delivery Room Air Room Air Capillary Refill : Less Than 3 Seconds Blood Pressure Mean: 98 Departure Impression Primary Impression: Upper respiratory infection Qualified Codes: J06.9 - Acute upper respiratory infection, unspecified Disposition: 01 HOME, SELF-CARE Condition: Stable Departure-Patient Inst. Decision time for Depature: 08:05 Referrals: ARTURO AARON MD (PCP/Family) Primary Care Physician Patient Instructions: VIRAL RESP ILLNESS-ADULT Add. Discharge Instructions: Plenty fluids to stay well-hydrated. You can take esat-knk-hgvmzem DayQuil and NyQuil for your symptoms of cough, congestion. You can also take majq-qyt-fchwbzf ibuprofen 3 pills, (Advil/Motrin) every 6 hours with food as needed for body aches. If you develop worsening symptoms of fever, shortness of breath, productive cough or any other emergent, concerning symptoms please return to the emergency room for reevaluation. Work/School Note: Work Release Form Date Seen in the Emergency Department: May 06, 2022 Return to Work: May 07, 2022 Copy Copies To 1: ARTURO AARON MD, KATHRYN M MD May 06, 2022 06:56
[2022-05-06] MEDS ORDERED: IBUPROFEN 600 MG (MOTRIN) TAB PO ONE (07:00)
[2022-05-06 08:15] VITALS: BP 112/82
== END 2022-05-06 08:14 | disposition home or self-care (01) ==
LOC: EDUNIT# 06:13 → ER 06:16
DX: J06.9 Acute upper respiratory infection, unspecified (principal); Z20.822 Contact with and (suspected) exposure to COVID-19; Z28.310 Unvaccinated for COVID-19
CPT/HCPCS: 87636; 99283

== ENCOUNTER 2022-07-06 23:04 | Emergency (ER) | payer MEDICAID ==
--- NOTE | 2022-07-07 00:44 | ED Lower Extremity ---
General Chief Complaint: Lower Extremity Stated Complaint: FALL/LEFT ANKLE INJURY Nursing Triage Note: TO ED VIA POV AND AMBULATORY WITH LIMP TO TRIAGE WITH C/O LEFT ANKLE PAIN AFTER FALLING AND LANDING ON LEFT ANKLE WITH MOST OF WEIGHT WHILE AT WORK AT [employer]. PT STATES SHE TOOK TYLENOL AT 2230. LEFT LOWER EXTREMITY ELEVATED ON CHAIR IN TRIAGE ROOM, PT REFUSED ICE PACK AT THIS TIME. Source: patient, old records Exam Limitations: no limitations (VIMAL TROTTER) History of Present Illness Date Seen by Provider: Jul 07, 2022 Time Seen by Provider: 12:09 Initial Comments Mrs. De La Cruz is a 31 yo F with PMH of arthritis and left ankle sprain 10/09/2021 who presents to the ED today with sharp, non-radiating pain to the left ankle following an injury that occured at work. 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 She reports feeling and hearing a popping sounds/sensation from her left ankle during the incident. She denies LOC, or feeling dizzy before, during or after the event. She can bear weight on the ankle which increases the pain, NSAIDs and ice improve the pain. She denies N/V/F/C or changes in vision. Onset: this evening (9:15PM) Severity: mild Pain/Injury Location: left ankle Method of Injury: fell, twisted Modifying Factors: Improves With Cold Therapy, Improves With Immobilization; Worse With Jarring, Worse With Movement; Improves With Pain Medication, Improves With Rest (VIMAL TROTTER) Allergies and Home Medications Allergies Coded Allergies: No Known Drug Allergies (Unverified , 06/20/13) Patient Home Medication List Home Medication List Reviewed: Yes (MEGHAN TONEY MD) Docusate Sodium (Dok) 100 Mg Capsule, 100 MG PO BID Prescribed by: WINIFRED RAHMAN on 03/17/20 0823 Ibuprofen (Ibuprofen) 800 Mg Tablet, 800 MG PO Q6HR Prescribed by: WINIFRED RAHMAN on 03/17/20 0823 Ibuprofen (Ibuprofen) 800 Mg Tablet, 800 MG PO Q6H PRN for PAIN-MILD Prescribed by: LINA BATISTA on 10/09/21 0709 Oxycodone HCl/Acetaminophen (Percocet 10-325 mg Tablet) 1 Each Tablet, 1 TAB PO Q4HR PRN for PAIN-MODERATE (5-7) Prescribed by: WINIFRED RAHMAN on 03/17/20 0823 Vit W-Ca,Fe,FA(<1 mg) ( Vitamins) 1 Each Tablet, 1 EACH PO DAILY, (Reported) Entered as Reported by: CAYETANO ZHANG on 03/17/20 0714 Review of Systems Constitutional: No chills, No diaphoresis, No dizziness, No fever, No malaise, No weakness EENTM: No blurred vision, No vision loss Respiratory: No cough Cardiovascular: No chest pain Gastrointestinal: No abdominal pain, No nausea Musculoskeletal: joint pain (left ankle), joint swelling (left ankle) Skin: No change in color, No lesions, No lumps Psychiatric/Neurological: Denies Numbness, Denies Paresthesia, Denies Weakness (VIMAL TROTTER) Past Gspdkbh-Jaesbx-Porqpb Hx Patient Social History Tobacco Use?: No Substance use?: No Alcohol Use?: No (VIMAL TROTTER) Immunizations Up To Date Tetanus Booster (TDap): Unknown PED Vaccines UTD: Yes Influenza Vaccine Up-to-Date: Yes; Up-to-Date (VIMAL TROTTER) Seasonal Allergies Seasonal Allergies: No (VIMAL TROTTER) Past Medical History Surgeries: Yes ( X 2; RIGHT WRIST GANGLION CYST) Section, Orthopedic, Tubal Ligation Respiratory: No Cardiac: No Neurological: No Reproductive Disorders: No 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 oz. 72.335268io; 29.00 BMI Method:Stated General Appearance: WD/WN, no apparent distress HEENT: PERRL/EOMI, pharynx normal Neck: non-tender, full range of motion, supple, normal inspection Cardiovascular: regular rate, rhythm, no murmur Respiratory: chest non-tender, lungs clear, normal breath sounds, no respiratory distress, no accessory muscle use Gastrointestinal: normal bowel sounds, non tender, soft, no organomegaly, no pulsatile mass Back: no CVA tenderness, no vertebral tenderness Hips: bilateral hip non-tender, bilateral hip normal inspection, bilateral hip normal range of motion Legs: bilateral leg non-tender, bilateral leg normal inspection, bilateral leg normal range of motion Knees: bilateral knee non-tender, bilateral knee normal inspection, bilateral knee normal range of motion Ankles: right ankle non-tender, right ankle normal inspection, right ankle normal range of motion; left ankle bone tenderness, left ankle limited range of motion, left ankle pain, left ankle soft tissue tenderness, left ankle swelling (Mild swelling, no sign of brusing, sensation intact, DP/PT +2, Muscle +4 - limited ROM secondary to pain) Feet: bilateral foot non-tender, bilateral foot normal inspection, bilateral foot normal range of motion Neurologic/Tendon: normal sensation, normal motor functions, normal tendon functions, responds to pain, no evidence tendon injury Neurologic/Psychiatric: drier tender II-XII nml as tested, no motor/sensory deficits, alert, normal mood/affect, oriented x 3 Skin: normal color, warm/dry Lymphatic: no adenopathy (VIMAL TROTTER) Progress/Results/Core Measures Results/Orders My Orders Orders - MEGHAN TONEY MD Foot, Left, 3 Views (07/07/22 01:04) Ankle, Left, 3 Views (07/07/22 01:04) (MEGHAN TONEY MD) Vital Signs/I&O 07/06/22 07/07/22 23:27 01:55 Temp 36.6 36.6 Pulse 74 72 Resp 16 16 B/P (MAP) 116/80 (92) 115/78 Pulse Ox 98 99 O2 Delivery Room Air Room Air (MEGHAN TONEY MD) Blood Pressure Mean: 92 Progress Progress Note : Progress Note Fx appears unlikely, ligamentous tear unlikely, will obtain 3 view XR to RO Fx. Counseled regarding elevation, compression wrap, rest, ice and NSAIDs PRN for pain for likely ligamentous sprain. Also counseled regarding more supportive foot wear such as high-top shoes. (VIMAL TROTTER) Progress Note : Progress Note Patient was interviewed and examined by me in addition to MS4. No obvious injuries were identified by inspection. Patient had tenderness over both malleoli of the left ankle. X-rays were obtained and interpreted by me. Radiologist's report was not yet available. No acute injuries were identified. Patient declined crutches or pain medication. Work comp papers were completed. (MEGHAN TONEY MD) Diagnostic Imaging Diagonstic Imaging: Xray Plain Films/CT/US/NM/MRI: ankle Comments X-rays of the left ankle were viewed by me. Report not yet available. No acute bony injuries were identified. (MEGHAN TONEY MD) Departure Impression Primary Impression: Left ankle sprain Qualified Codes: S93.402A - Sprain of unspecified ligament of left ankle, initial encounter Disposition: 01 HOME, SELF-CARE Condition: Stable Departure-Patient Inst. Decision time for Depature: 01:48 (MEGHAN TONEY MD) Referrals: ARTURO AARON MD (PCP/Family) Primary Care Physician Patient Instructions: Ankle Sprain ED, Ankle Strengthening Exercises Add. Discharge Instructions: Gradually increase level of activity as pain allows. Use a Velcro or lace up ankle brace to protect your ankle when active and at work for the next 6 weeks. Elevation, icing, compressive wrapping with an Esteban bandage, and relative rest ca n also be employed to help treat pain and swelling over the next several days. You may use ibuprofen up to 600 mg every 6 hours as needed for pain. Add Tylenol (acetaminophen) up to 1000 mg every 6 hours as needed for additional pain relief. Return to care if you have worsening symptoms despite following these instructions. Your x-rays have not yet been read by a radiologist. You are encouraged to call back after 9 AM to obtain the official radiologist interpretation. All discharge instructions reviewed with patient and/or family. Voiced understanding. Medical Student Attestation and Attending Note: I have personally interviewed and examined this patient along with Vimal Trotter, MS4. I have reviewed student documentation including history, physical, and assessments. I agree with the documentation except where otherwise noted. Exam: General: Alert, oriented, no acute distress, well developed EXT: No TTP of the left foot. TTP over both malleoli. No significant swelling or skin discoloration Neuropsych: Alert, oriented, no focal deficits Skin: Warm and dry without rashes (MEGHAN TONEY MD) VIMAL TROTTER Jul 07, 2022 00:44 MEGHAN TONEY MD Jul 07, 2022 01:52
[2022-07-07 01:55] VITALS: BP 115/78
--- NOTE | 2022-07-07 06:44 | Diagnostic Imaging Report ---
INDICATION: Ankle pain COMPARISON: 10/09/2021 TECHNIQUE: 3 radiographs of the left ankle dated 07/07/2022. FINDINGS: No acute fracture or dislocation. No destructive osseous process. The talar dome is unremarkable. Ankle mortise is symmetric. Tiny plantar calcaneal enthesophyte. No suspicious radiopaque foreign body. IMPRESSION: No acute osseous abnormality. Dictated by: Dictated on workstation # [id number]
== END 2022-07-07 01:55 | disposition home or self-care (01) ==
LOC: EDUNIT# 23:04 → ER 23:06
DX: S93.402A Sprain of unspecified ligament of left ankle, initial encounter (principal); Z28.310 Unvaccinated for COVID-19; W18.30XA Fall on same level, unspecified, initial encounter; X50.1XXA Overexertion from prolonged static or awkward postures, initial encounter; Y92.129 Unspecified place in nursing home as the place of occurrence of the external cause; Y99.0 Civilian activity done for income or pay
CPT/HCPCS: 73610

== ENCOUNTER → 2022-07-24 | Outpatient (CLI) | payer MEDICAID ==
--- NOTE | 2022-07-24 13:32 | Diagnostic Imaging Report ---
PROCEDURE: US Non-ob pelvis comp/trans. INDICATION: PELVIC PAIN TECHNIQUE: Multiple real time reyes scale sonographic images were obtained of the pelvis transabdominally and endovaginally. CORRELATION STUDY: None FINDINGS: UTERUS: 8.6 x 4.1 x 5.5 cm. The uterus appearing unremarkable. ENDOMETRIUM: 0.7 cm. The endometrium is of normal thickness. RIGHT OVARY: 3.2 x 1.3 x 2.6 cm. LEFT OVARY: 3.1 x 1.3 x 2.4 cm. The ovaries have an unremarkable appearance. No concerning mass. Ovarian blood flow is present. No significant free pelvic fluid. Overall, limitations given moderate amount of overlying bowel gas. IMPRESSION: 1. Unremarkable appearing pelvic ultrasound examination. Dictated by: Dictated on workstation # [id number]
== END ==
LOC: RAD 09:41
PROVIDERS: ATTEND Family Medicine
DX: R10.2 Pelvic and perineal pain (principal)
CPT/HCPCS: 76830; 76856

== ENCOUNTER 2022-12-21 09:47 | Emergency (ER) | payer BC, MEDICAID ==
[~2022-12-21] VITALS: Ht 154.9 cm; Wt 77.1 kg
[2022-12-21] MEDS ORDERED: KETOROLAC INJ 30 MG/ML VIAL IVP STA (10:21)
--- NOTE | 2022-12-21 10:34 | ED Abdominal Pain ---
General Chief Complaint: Abdominal/GI Problems Stated Complaint: ABD PAIN | LOWER BACK PAIN | LETHARGIC Nursing Triage Note: PT AMB TO RM 6 WITH COMPLAINT OF ABD PAIN, BACK PAIN, AND BODY ACHES FOR THREE DAYS. DENIES FEVERS. Source of Information: Patient Exam Limitations: No Limitations History of Present Illness Date Seen by Provider: Dec 21, 2022 Time Seen by Provider: 10:13 Initial Comments Report of lower abdominal pain and low back pain with some feeling of blahs. She states that she is eating okay but maybe a little less and drinking okay. Denies dysuria or diarrhea. Denies sore throat, runny nose or cough. Complaints are centered in the abdomen anterior epigastric to suprapubic and nothing seems to be making it better or worse. She has not had anything for pain. She is concerned because she does not know her family history on her father side. 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 States that this could be a urinary tract infection. Timing/Duration: 2-3 Days Severity/Quality: Mild, Moderate, Aching Location: Generalized Abdomen Radiation: Back Activities at Onset: None Modifying Factors: Improves With Resting Associated Symptoms: No Chest Pain, No Fever/Chills, No Shortness of Air, No Swelling/Mass in Abdomen, No Weakness Allergies and Home Medications Allergies Coded Allergies: No Known Drug Allergies (Unverified , 06/20/13) Patient Home Medication List Home Medication List Reviewed: Yes Docusate Sodium (Dok) 100 Mg Capsule, 100 MG PO BID Prescribed by: WINIFRED RAHMAN on 03/17/20 0823 Ibuprofen (Ibuprofen) 800 Mg Tablet, 800 MG PO Q6HR Prescribed by: WINIFRED RAHMAN on 03/17/20 0823 Ibuprofen (Ibuprofen) 800 Mg Tablet, 800 MG PO Q6H PRN for PAIN-MILD Prescribed by: LINA BATISTA on 10/09/21 0709 Oxycodone HCl/Acetaminophen (Percocet 10-325 mg Tablet) 1 Each Tablet, 1 TAB PO Q4HR PRN for PAIN-MODERATE (5-7) Prescribed by: WINIFRED RAHMAN on 03/17/20 0823 Vit W-Ca,Fe,FA(<1 mg) ( Vitamins) 1 Each Tablet, 1 EACH PO DAILY, (Reported) Entered as Reported by: CAYETANO ZHANG on 03/17/20 0714 Review of Systems Review of Systems Constitutional: see HPI; No fever; malaise EENTM: No Nose Congestion, No Throat Pain Respiratory: Denies Cough, Denies Shortness of Air Cardiovascular: Denies Chest Pain Gastrointestinal: Abdominal Pain; Denies Diarrhea; Nausea; Denies Vomiting Genitourinary: Pain Musculoskeletal: back pain Skin: no symptoms reported Psychiatric/Neurological: No Symptoms Reported Past Pbbaaho-Haeaoq-Qfucdm Hx Patient Social History Tobacco Use?: No Use of E-Cig and/or Vaping dev: No Substance use?: No Alcohol Use?: No Pt feels they are or have been: No Immunizations Up To Date Tetanus Booster (TDap): Unknown PED Vaccines UTD: Yes Seasonal Allergies Seasonal Allergies: No Past Medical History Surgeries: Yes ( X 2; RIGHT WRIST GANGLION CYST) Section, Orthopedic, Tubal Ligation Respiratory: No Cardiac: No Neurological: No Reproductive Disorders: No 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 oz. 72.502171wy; 32.00 BMI Method:Stated General Appearance: WD/WN, no apparent distress HEENT: PERRL/EOMI, pharynx normal Neck: full range of motion, supple Respiratory: lungs clear, normal breath sounds Cardiovascular: regular rate, rhythm, no murmur Gastrointestinal: non tender, soft Back: normal inspection, no CVA tenderness, no vertebral tenderness Neurologic/Psychiatric: alert, oriented x 3 Skin: normal color, warm/dry Progress/Results/Core Measures Results/Orders Lab Results Laboratory Tests Test 12/21/22 10:12 12/21/22 10:39 Range/Units Urine Color YELLOW Urine Clarity CLEAR Urine pH 5.5 5-9 Urine Specific [place] 1.025 H 1.016-1.022 Urine Protein 2+ H NEGATIVE Urine Glucose (UA) NEGATIVE NEGATIVE Urine Ketones 3+ H NEGATIVE Urine Nitrite NEGATIVE NEGATIVE Urine Bilirubin 2+ H NEGATIVE Urine Urobilinogen 0.2 < = 1.0 MG/DL Urine Leukocyte Esterase NEGATIVE NEGATIVE Urine RBC (Auto) 1+ H NEGATIVE Urine RBC 2-5 H /HPF Urine WBC 0-2 /HPF Urine Squamous Epithelial Cells 5-10 /HPF Urine Crystals PRESENT H /LPF Urine Amorphous Sediment RARE MARIE URATES H /LPF Urine Bacteria TRACE /HPF Urine Casts NONE /LPF Urine Mucus NEGATIVE /LPF Urine Culture Indicated NO White Blood Count 6.6 4.3-11.0 10^3/uL Red Blood Count 5.52 H 3.80-5.11 10^6/uL Hemoglobin 13.9 11.5-16.0 g/dL Hematocrit 45 35-52 % Mean Corpuscular Volume 81 80-99 fL Mean Corpuscular Hemoglobin 25 25-34 pg Mean Corpuscular Hemoglobin Concent 31 L 32-36 g/dL Red Cell Distribution Width 15.8 H 10.0-14.5 % Platelet Count 238 130-400 10^3/uL Mean Platelet Volume 9.9 9.0-12.2 fL Immature Granulocyte % (Auto) 0 % Neutrophils (%) (Auto) 85 H 42-75 % Lymphocytes (%) (Auto) 10 L 12-44 % Monocytes (%) (Auto) 4 0-12 % Eosinophils (%) (Auto) 1 0-10 % Basophils (%) (Auto) 0 0-10 % Neutrophils # (Auto) 5.6 1.8-7.8 10^3/uL Lymphocytes # (Auto) 0.7 L 1.0-4.0 10^3/uL Monocytes # (Auto) 0.3 0.0-1.0 10^3/uL Eosinophils # (Auto) 0.0 0.0-0.3 10^3/uL Basophils # (Auto) 0.0 0.0-0.1 10^3/uL Immature Granulocyte # (Auto) 0.0 0.0-0.1 10^3/uL Sodium Level 138 135-145 MMOL/L Potassium Level 3.2 L 3.6-5.0 MMOL/L Chloride Level 103 98-107 MMOL/L Carbon Dioxide Level 22 21-32 MMOL/L Anion Gap 13 5-14 MMOL/L Blood Urea Nitrogen 9 7-18 MG/DL Creatinine 0.82 0.60-1.30 MG/DL Estimat Glomerular Filtration Rate 99 BUN/Creatinine Ratio 11 Glucose Level 87 70-105 MG/DL Calcium Level 9.2 8.5-10.1 MG/DL Corrected Calcium 9.0 8.5-10.1 MG/DL Total Bilirubin 1.0 0.1-1.0 MG/DL Aspartate Amino Transf (AST/SGOT) 17 5-34 U/L Alanine Aminotransferase (ALT/SGPT) 16 0-55 U/L Alkaline Phosphatase 95 40-136 U/L C-Reactive Protein High Sensitivity 7.15 H 0.00-0.50 MG/DL Total Protein 7.8 6.4-8.2 GM/DL Albumin 4.3 3.2-4.5 GM/DL Micro Results Microbiology 12/21/22 Wet Prep - Final, Complete My Orders Orders - LORI MARCELINO MD Cbc With Automated Diff (12/21/22 10:21) Comprehensive Metabolic Panel (12/21/22 10:21) Hs C Reactive Protein (12/21/22 10:21) Ua Culture If Indicated (12/21/22 10:21) Ed Iv/Invasive Line Start (12/21/22 10:21) Ketorolac Injection (Ketorolac Injection (12/21/22 10:21) Ns Iv 1000 Ml (Ns Iv 1000 Ml) (12/21/22 12:00) Wet Prep (12/21/22 11:53) Ct Abdomen/Pelvis W (12/21/22 13:38) Medications Given in ED Current Medications Medications Dose Ordered Sig/Mumtaz Route Start Time Stop Time Status Last Admin Dose Admin Sodium Chloride 1,000 ml @ 0 mls/hr Q0M ONCE IV 12/21/22 12:00 12/21/22 12:01 DC 12/21/22 11:57 0 MLS/HR Vital Signs/I&O 12/21/22 09:57 Temp 35.6 Pulse 91 Resp 16 B/P (MAP) 136/95 (109) Pulse Ox 99 O2 Delivery Room Air Blood Pressure Mean: 109 Progress Progress Note : Progress Note Seen and evaluated. IV, labs including CBC, CMP, CRP and UA ordered. Toradol 30 mg IV for pain. Monitor patient. Differential diagnosis includes UTI, intra-abdominal pathology including viral etiology, bacterial infection or other bowel pathology. 1153: Labs reviewed and CBC is grossly normal. CMP also grossly normal although slightly low potassium. CRP is elevated. UA does not indicate significant uri nary tract infection. We did discuss other etiology for infective symptoms and pain. Ultimately we decided to go ahead and get wet prep and we will get CT abdomen and pelvis to rule out intra-abdominal pathology. I did order a liter of normal saline. Patient is feeling a little bit better now. Pending CT. Monitor patient. 1342: I have DC'd the CT scan. Patient is feeling better after fluids. Overall this may be viral etiology and since she is feeling better with current lab evaluation and negative wet prep, watching at home is reasonable. This was discussed with the patient who agrees. Discharged home with return precautions. Patient verbalized understanding instructions and agreement with plan. Departure Impression Primary Impression: Lower abdominal pain Disposition: 01 HOME, SELF-CARE Condition: Improved Departure-Patient Inst. Decision time for Depature: 13:43 Referrals: ARTURO AARON MD (PCP/Family) Primary Care Physician Patient Instructions: Severe Abdominal Pain, Adult (DC) Add. Discharge Instructions: All discharge instructions reviewed with patient and/or family. Voiced understanding. Clear a light diet for the next 24 hours and then advance as tolerated. Drink plenty of fluids by taking small sips frequently. You may take ibuprofen 600 mg every 8 hours as needed for pain. You may also take Tylenol/acetaminophen 1000 mg every 8 hours as needed for pain. Return for worse pain, fever, vomiting, weakness, breathing problems, blood in your urine or stool or other concerns as needed. Follow-up with your doctor early next week for recheck and further evaluation as needed. LORI MARCELINO MD Dec 21, 2022 10:34
[2022-12-21 10:45] LABS: BASOPHILS % (AUTO) 0 % (0-10); EOSINOPHILS % (AUTO) 1 % (0-10); HEMATOCRIT 45 % (35-52); HEMOGLOBIN 13.9 g/dL (11.5-16.0); LYMPHOCYTES # (AUTO) 0.7 10^3/uL (1.0-4.0); LYMPHOCYTES % (AUTO) 10 % (12-44); MEAN CORPUSCULAR HEMOGLOBIN 25 pg (25-34); MEAN CORPUSCULAR HGB CONC 31 g/dL (32-36); MEAN CORPUSCULAR VOLUME 81 fL (80-99); MEAN PLATELET VOLUME 9.9 fL (9.0-12.2); MONOCYTES # (AUTO) 0.3 10^3/uL (0.0-1.0); MONOCYTES % (AUTO) 4 % (0-12); NEUTROPHILS # (AUTO) 5.6 10^3/uL (1.8-7.8); NEUTROPHILS % (AUTO) 85 % (42-75); PLATELET COUNT 238 10^3/uL (130-400); WHITE BLOOD COUNT 6.6 10^3/uL (4.3-11.0)
[2022-12-21 10:52] LABS: CLARITY,URINE CLEAR; COLOR,URINE YELLOW; GLUCOSE, URINE (UA) NEGATIVE (NEGATIVE); PH,URINE 5.5 (5-9); PROTEIN,URINE 2+ (NEGATIVE)
[2022-12-21 10:53] LABS: AMORPHOUS SEDIMENT,UR RARE AMOR URATES /LPF; BACTERIA,URINE TRACE /HPF; BILIRUBIN,URINE 2+ (NEGATIVE); KETONES,URINE 3+ (NEGATIVE); LEUKOCYTE ESTERASE ,URINE NEGATIVE (NEGATIVE); NITRITE,URINE NEGATIVE (NEGATIVE); WBC,URINE 0-2 /HPF
[2022-12-21 10:59] LABS: ALBUMIN 4.3 GM/DL (3.2-4.5); POTASSIUM 3.2 MMOL/L (3.6-5.0)
[2022-12-21 11:00] LABS: CALCIUM 9.2 MG/DL (8.5-10.1)
[2022-12-21 11:01] LABS: TOTAL PROTEIN 7.8 GM/DL (6.4-8.2)
[2022-12-21 11:05] LABS: CREATININE SERUM 0.82 MG/DL (0.60-1.30)
[2022-12-21] MEDS ORDERED: NS IV 1000 ML 1,000 ML IV ONE (12:00)
[2022-12-21] MEDS ORDERED: HOLD METFORMIN - RECEIVED CONTRAST 20 ML VIAL IV SCH (13:45)
[2022-12-21] MEDS ORDERED: IOHEXOL 350 MG/ML 100 ML (OMNIPAQUE 350) VIAL IV ONE (13:45)
[2022-12-21] MEDS ORDERED: NS 100 ML (IVPB) BAG IV ONE (13:45)
[2022-12-21 13:57] VITALS: BP 128/88
== END 2022-12-21 13:57 | disposition home or self-care (01) ==
LOC: EDUNIT# 09:47 → ER 09:49
DX: R10.30 Lower abdominal pain, unspecified (principal)
CPT/HCPCS: 36415; 80053; 81000; 85025; 86141; 87210